=== PATIENT | male | born 1965 | race Caucasian/White ===

== ENCOUNTER 2016-08-29 13:36 | Emergency (ER) | payer MEDICARE, MEDICAID ==
[~2016-08-29] VITALS: Ht 188 cm; Wt 67.9 kg
[~2016-08-29 13:36] MED LIST: ACET-2161 GT; ACET325T51 GT; AMOX1TAB16 PO; BACI30OI6 TOP; BENZ1TAB49 GT; BISM262O28 PO; FERR220E3 GT; FLUT9.9S EA NOSTRIL; GUAI100S13 GT; LAMO100T12 GT; LAMO200T6 GT; LIDO30CR23 TP; LORA5SOL70 GT; MENT71OI TOP; METF500T4 GT; NUT.237L53 PO; OMEP40CA GT; POTA10CA37 GT; SERT-77 GT; TOLN150S TOP; TRAZ150T80 GT; [UNRECOGNIZED DRUG - CODE] GT; [UNRECOGNIZED DRUG - CODE] GT
[2016-08-29 13:39] VITALS: TEMP 98.1; Ht 188 cm; Wt 67.9 kg
--- OUTSIDE RECORDS SUMMARY | 2016-08-29 13:40 | XMS REPORT | Continuity of Care Document ---
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 If you do not see the information that you expected, contact Release of Information in the Health Information Management department at [phone] for further assistance in locating additional records.[facility] Active Allergies and Adverse Reactions Allergen Noted Date Severity Reactions Comments Bactrim 11/03/2015 Low SEE COMMENTS causes kidney dysfunction Ibuprofen 11/03/2015 Low SEE COMMENTS causes kidney dysfunction Pseudoephedrine Hcl 11/03/2015 Medium ITCHING, EDEMA Current Medications Prescription Sig. Disp. Refills Start End Date Status Date acetaminophen (TYLENOL) 500 mg by PEG Tube route Active 500 mg tablet every 6 hours as needed for Pain. aspirin 81 mg chewable 81 mg by PEG Tube route Active tablet daily. Take with food. benztropine (COGENTIN) 1 1 mg by PEG Tube route Active mg tablet twice daily. MENTHOL/ZINC OXIDE Apply to affected area Active (CALMOSEPTINE TP) as Needed. ferrous sulfate 300 mg/5 300 mg by PEG Tube route Active mL oral solution daily. fluticasone (FLONASE) 50 Apply to each nostril as Active mcg/actuation nasal spray directed daily. Shake bottle gently before using. Nut.Tx.Gluc.Intol,Lac-Wang by PEG Tube route at Active e,Soy (GLUCERNA 1.5 KRISTAN) bedtime daily. liqd NUT.TX.GLUC.INTOLER,LAC-F by PEG Tube route daily. Active R,SOY (GLUCERNA SHAKE PO) lamoTRIgine (LAMICTAL) 300 mg by PEG Tube route Active 100 mg tablet daily. loratadine (CLARITIN) 5 5 mg by PEG Tube route Active mg/5 mL syrup daily. metFORMIN (GLUCOPHAGE) 250 mg by PEG Tube route Active 500 mg tablet daily. magnesium hydroxide (MILK 30 mL by PEG Tube route Active OF MAGNESIA) 400 mg/5 mL every 24 hours as needed. oral suspension QUEtiapine (SEROQUEL) 50 Take 75 mg by mouth twice Active mg tablet daily. QUEtiapine (SEROQUEL) 300 Take 300 mg by mouth Active mg tablet twice daily. sertraline (ZOLOFT) 100 Take 200 mg by mouth Active mg tablet daily. traZODone (DESYREL) 100 Take 100 mg by mouth at Active mg tablet bedtime daily. Active Problems Problem Noted Date Dysphagia 11/03/2015 Social History Tobacco Use Types Packs/Day Years Used Date Never Smoker Last Filed Vital Signs Vital Sign Reading Time Taken Blood Pressure 104/62 11/03/2015 9:56 AM CDT Pulse 70 11/03/2015 9:56 AM CDT Temperature - - Respiratory Rate - - Height 1.88 m (6' 2") 11/03/2015 9:56 AM CDT Weight 75.5 kg (166 lb 7.2 oz) 11/03/2015 9:56 AM CDT Body Mass Index 21.36 11/03/2015 9:56 AM CDT Oxygen Saturation - - Plan of Care Health Maintenance Due Date Last Done Comments Physical (Comprehensive) 1973 Exam Pertussis Vaccine 1977 Tetanus Vaccine 1983 Colorectal Cancer 2016 Screening Influenza Vaccine 12/09/2016 Results from Last 3 Months Not on file
--- OUTSIDE RECORDS SUMMARY | 2016-08-29 13:41 | XMS REPORT | Referral Summary ---
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 Name Role Phone Rob Everett Primary Care Physician [phone] Encounter Date(s): 03/17/16 - 03/17/16 [facility], [address] [place] [id number] Discharge Diagnosis: Sideropenic dysphagia Discharge Diagnosis: DM II (diabetes mellitus, type II), controlled Discharge Diagnosis: Feeding by G-tube Discharge Diagnosis: Undifferentiated schizophrenia Discharge Diagnosis: Mixed hyperlipidemia Discharge Diagnosis: Severe recurrent major depression with psychotic features Discharge Diagnosis: GERD with esophagitis Discharge Diagnosis: Cellulitis Discharge Disposition: 01-Home or Self Care Attending Physician: David Bhatt MD Admitting Physician: David Bhatt MD Vital Signs Most recent to 1 oldest [Reference Range]: Blood Pressure 100/60 mmHg [90-140/60-90 mmHg] (03/17/16 1:24 PM) Problem List Condition Effective Dates Status Health Status Informant Allergic Active rhinitis(Confirmed) GERD with Active esophagitis(Confirme d) Mixed Active hyperlipidemia(Confi rmed) Sideropenic Active dysphagia(Confirmed) Recurrent aspiration < 07/06/15 Resolved bronchitis/pneumonia (Confirmed) Severe recurrent Active major depression with psychotic features(Confirmed) Feeding by Active G-tube(Confirmed) DM II (diabetes Active mellitus, type II), controlled(Confirmed ) Undifferentiated Active schizophrenia(Confir med) Allergies, Adverse Reactions, Alerts Substance Reaction Severity Status Bactrim Active ibuprofen Active Sudafed Active Medications acetaminophen 0 Refill(s) Start Date: 06/10/15 Status: Ordered amoxicillin 250 mg/5 mL oral suspension 500 mg 10 mL, G-Tube, TID, X 10 days, # 300 mL, 0 Refill(s), Pharmacy: [facility], 10 mL G-Tube TID,x10 days Start Date: 03/17/16 Stop Date: 03/27/16 Status: Ordered aspirin 81 mg oral tablet 81 mg 1 tabs, Oral, Daily, # 30 tabs, 0 Refill(s) Start Date: 06/10/15 Status: Ordered benztropine 1 mg oral tablet mg tabs, Oral, BID, 0 Refill(s) Start Date: 06/10/15 Status: Ordered docusate 0 Refill(s) Start Date: 06/10/15 Status: Ordered ferrous fumarate 300 mg oral tablet mg tabs, Oral, Daily, 0 Refill(s) Start Date: 06/10/15 Status: Ordered ferrous sulfate 300 mg/5 mL (60 mg elemental iron) oral liquid 300 mg 5 mL, G-Tube, Daily, # 150 mL, 1 Refill(s) Start Date: 12/09/15 Status: Ordered Flonase sprays, Nasal, Daily, 0 Refill(s) Start Date: 06/10/15 Status: Ordered Glucometer (DME) DME Item to check bld sugars fasting and 2hrpp after last meal three days of week. diag - E11.9, See Instructions, # 1 Each, 0 Refill(s), Pharmacy: [facility], to check bld sugars fasting and 2hrpp after last meal three days of we... Start Date: 07/08/15 Status: Ordered Glucometer Lancets (DME) DME Item AccuCheck Soft Click Lancets. SIG: Use one lancet BID every other day. DX: E11.9, See Instructions, # 1 boxes, 6 Refill(s), Pharmacy: [id number], AccuCheck Soft Click Lancets. SIG: Use one lancet BID every other day. DX: E... Start Date: 02/16/16 Status: Ordered Glucometer strips (DME) DME Item PT USES ACCUCHECK SHORTY TO CHECK BLOOD SUGAR 4 TIMES DAILY FOR E11.65, See Instructions, # 100 Each, 1 Refill(s), Pharmacy: [facility] [id number] , PT USES ACCUCHECK SHORTY TO CHECK BLOOD SUGAR 4 TIMES DAILY FOR E11.65, Supply Start Date: 07/27/15 Status: Ordered lamoTRIgine 200 mg oral tablet mg tabs, Oral, BID, 0 Refill(s) Start Date: 06/10/15 Status: Ordered loratadine 0 Refill(s) Start Date: 06/10/15 Status: Ordered Milk of Magnesia Oral, Bedtime (once a day), 0 Refill(s) Start Date: 06/10/15 Status: Ordered mupirocin 2% topical ointment 1 jessie, Topical, BID, Apply 1 gram to affected area aroung g-tube for 5 days., # 22 g, 0 Refill(s), Pharmacy: [facility] Start Date: 03/17/16 Status: Ordered potassium chloride 10 mEq oral tablet, extended release mEq tabs, Oral, BID, 0 Refill(s) Start Date: 06/10/15 Status: Ordered PriLOSEC Oral, Daily, 0 Refill(s) Start Date: 06/10/15 Status: Ordered QUEtiapine 300 mg oral tablet mg tabs, Oral, BID, 0 Refill(s) Start Date: 06/10/15 Status: Ordered Senna Oral, Bedtime (once a day), 0 Refill(s) Start Date: 06/10/15 Status: Ordered sertraline 100 mg oral tablet mg tabs, Oral, Daily, 0 Refill(s) Start Date: 06/10/15 Status: Ordered traZODone 100 mg oral tablet mg tabs, Oral, TID, 0 Refill(s) Start Date: 06/10/15 Status: Ordered Results No data available for this section Immunizations Vaccine Date Refusal Reason influenza virus vaccine, inactivated 12/04/15 Procedures No data available for this section Social History Social History Type Response Smoking Status Never smoker Assessment and Plan Extracted from: Title: Ambulatory Patient Education Author: David Bhatt MD Date: Family Medicine Bipolar Disorder Bipolar disorder is a mental illness. The term bipolar disorder actually is used to describe a group of disorders that all share varying degrees of emotional highs and lows that can interfere with daily functioning, such as work , school, or relationships. Bipolar disorder also can lead to drug abuse, hospitalization, and suicide. The emotional highs of bipolar disorder are periods of elation or irritability and high energy. These highs can range from a mild form (hypomania) to a severe form (rosemarie). People experiencing episodes of hypomania may appear energetic, excitable, and highly productive. People experiencing rosemarie may behave impulsively or erratically. They often make poor decisions. They may have difficulty sleeping. The most severe episodes of rosemarie can involve having very distorted beliefs or perceptions about the world and seeing or hearing things that are not real (psychotic delusions and hallucinations). The emotional lows of bipolar disorder (depression) also can range from mild to severe. Severe episodes of bipolar depression can involve psychotic delusions and hallucinations. Sometimes people with bipolar disorder experience a state of mixed mood. Symptoms of hypomania or rosemarie and depression are both present during this mixed -mood episode. SIGNS AND SYMPTOMS There are signs and symptoms of the episodes of hypomania and rosemarie as well as the episodes of depression. The signs and symptoms of hypomania and rosemarie are similar but vary in severity. They include: Inflated self-esteem or feeling of increased self-confidence. Decreased need for sleep. Unusual talkativeness (rapid or pressured speech) or the feeling of a need to keep talking. Sensation of racing thoughts or constant talking, with quick shifts between topics that may or may not be related (flight of ideas). Decreased ability to focus or concentrate. Increased purposeful activity, such as work, studies, or social activity , or nonproductive activity, such as pacing, squirming and fidgeting, or finger and toe tapping. Impulsive behavior and use of poor judgment, resulting in high-risk activities, such as having unprotected sex or spending excessive amounts of money. Signs and symptoms of depression include the following: Feelings of sadness, hopelessness, or helplessness. Frequent or uncontrollable episodes of crying. Lack of feeling anything or caring about anything. Difficulty sleeping or sleeping too much. Inability to enjoy the things you used to enjoy. Desire to be alone all the time. Feelings of guilt or worthlessness. Lack of energy or motivation. Difficulty concentrating, remembering, or making decisions. Change in appetite or weight beyond normal fluctuations. Thoughts of or the desire to harm yourself. DIAGNOSIS Bipolar disorder is diagnosed through an assessment by your caregiver. Your caregiver will ask questions about your emotional episodes. There are two main types of bipolar disorder. People with type I bipolar disorder have manic episodes with or without depressive episodes. People with type II bipolar disorder have hypomanic episodes and major depressive episodes, which are more serious than mild depression. The type of bipolar disorder you have can make an important difference in how your illness is monitored and treated. Your caregiver may ask questions about your medical history and use of alcohol or drugs, including prescription medication. Certain medical conditions and substances also can cause emotional highs and lows that resemble bipolar disorder (secondary bipolar disorder). TREATMENT Bipolar disorder is a long-term illness. It is best controlled with continuous treatment rather than treatment only when symptoms occur. The following treatments can be prescribed for bipolar disorders: MedicationMedication can be prescribed by a doctor that is an expert in treating mental disorders (psychiatrists). Medications called mood stabilizers are usually prescribed to help control the illness. Other medications are sometimes added if symptoms of rosemarie, depression, or psychotic delusions and hallucinations occur despite the use of a mood stabilizer. Talk therapySome forms of talk therapy are helpful in providing support, education, and guidance. A combination of medication and talk therapy is best for managing the disorder over time. A procedure in which electricity is applied to your brain through your scalp (electroconvulsive therapy) is used in cases of severe rosemarie when medication and talk therapy do not work or work too slowly. This information is not intended to replace advice given to you by your health care provider. Make sure you discuss any questions you have with your health care provider. Document Released: 07/03/2001 Document Revised: 04/17/2015 Document Reviewed: [employer] Patient Education 2016 [employer] No follow up information was provided. Extracted from: Title: Office Visit Note Author: David Bhatt MD Date: 03/17/16 Assessment/Plan Cellulitis Amox elixir 250/5two tspsper PEG tube tid for ten days. Bactroban ointment bid for five days. Routine wound care discussed. Dressing applied. Wound culture pending. F/U with Dr. CHRISTENSEN. The patient has family members present who are agreeable with today's plan and have no additional concerns or requests. Home Health aid here and agreeable. To ER if worse. DM II (diabetes mellitus, type II), controlled The patient was notified for the need for regular quarterly f/u of their diabetes. Further any pertinent medication, supplies, etc were refilled. Additionally, they are to have annual eye exams, foot exams, and regular care. Lab stable. Feeding by G-tube See above. IMPRESSION: 1. There is some mild prominence of pulmonary interstitial markings with a suggestion of mild hyperinflation and air trapping. There are no focal alveolar infiltrates. There is no effusion. There is no evidence of failure. [1] GERD with esophagitis This issue was reviewed, appears stable, and current therapy continued except as mentioned. Appropriate lab was reviewed from the most recent appropriate entry and lab was ordered if needed in the cpoe/nursing orders, and follow up recommended generally in 90 days and no later then six months. Mixed hyperlipidemia This issue was reviewed, appears stable, and current therapy continued except as mentioned. Appropriate lab was reviewed from the most recent appropriate entry and lab was ordered if needed in the cpoe/nursing orders, and follow up recommended generally in 90 days and no later then six months. Severe recurrent major depression with psychotic features This issue was reviewed, appears stable, and current therapy continued except as mentioned. Appropriate lab was reviewed from the most recent appropriate entry and lab was ordered if needed in the cpoe/nursing orders, and follow up recommended generally in 90 days and no later then six months. Mood stable at this time. Sideropenic dysphagia See above. Has severe esophageal issues and has a PEGtube. Undifferentiated schizophrenia This issue was reviewed, appears stable, and current therapy continued except as mentioned. Appropriate lab was reviewed from the most recent appropriate entry and lab was ordered if needed in the cpoe /nursing orders, and follow up recommended generally in 90 days and no later then six months. Mood stable.
--- OUTSIDE RECORDS SUMMARY | 2016-08-29 13:41 | XMS REPORT | Referral Summary ---
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 Name Role Phone Rob Everett Primary Care Physician [phone] Encounter VC Date(s): 03/28/16 - 03/28/16 [facility], [address] [place] [id number] Discharge Diagnosis: Feeding by G-tube Discharge Diagnosis: Aspiration pneumonia Discharge Diagnosis: Pneumonia, community acquired Discharge Disposition: 01-Home or Self Care Attending Physician: Rob Everett DO Admitting Physician: Rob Everett DO Vital Signs Most recent to 1 oldest [Reference Range]: Temperature Tympanic 36.2 degC [36.6-38.1 degC] *LOW* (03/28/16 1:50 PM) Peripheral Pulse 78 bpm Rate [60-100 bpm] (03/28/16 1:50 PM) Blood Pressure 103/60 mmHg [90-140/60-90 mmHg] (03/28/16 1:50 PM) Problem List Condition Effective Dates Status [...] Active ibuprofen Active Sudafed Active Medications acetaminophen 500-1000 mg, G-Tube, q12hr, as needed for pain, 0 Refill(s) Start Date: 06/10/15 Status: Ordered aspirin 81 mg oral tablet 81 mg 1 tabs, Oral, Daily, # 30 tabs, 0 Refill(s) Start Date: 06/10/15 Status: Ordered Augmentin 875 mg-125 mg oral tablet 1 tabs, Oral, q12hr, X 7 days, 0 Refill(s) Start Date: 03/25/16 Stop Date: 03/31/16 Status: Ordered benztropine 1 mg oral tablet 1 mg 1 tabs, G-Tube, BID, 0 Refill(s) Start Date: 06/10/15 Status: Ordered ferrous sulfate 300 mg/5 mL (60 mg elemental iron) oral liquid 300 mg 5 mL, G-Tube, Daily, # 150 mL, 1 Refill(s) Start Date: 12/09/15 Status: Ordered Flonase 2 sprays, Nasal, Daily, 0 Refill(s) Start Date: 06/10/15 Status: Ordered Glucometer (DME) DME Item to check bld sugars fasting and 2hrpp after last meal three days of week. diag - E11.9, See Instructions, # 1 Each, 0 Refill(s), Pharmacy: [facility], to check bld sugars fasting and 2hrpp after last meal three days of we... Start Date: 07/08/15 Status: Ordered Glucometer Lancets (DME) DME Item AccuCheck Soft Click Lancets. SIG: Use one lancet BID every other day. DX: E11.9, See Instructions, # 1 boxes, 6 Refill(s), Pharmacy: [facility], AccuCheck Soft Click Lancets. SIG: Use one lancet BID every other day. DX: E... Start Date: 02/16/16 Status: Ordered Glucometer strips (DME) DME Item PT USES ACCUCHECK SHORTY TO CHECK BLOOD SUGAR 4 TIMES DAILY FOR E11.65, See Instructions, # 100 Each, 1 Refill(s), Pharmacy: [facility] [id number] , PT USES ACCUCHECK SHORTY TO CHECK BLOOD SUGAR 4 TIMES DAILY FOR E11.65, Supply Start Date: 07/27/15 Status: Ordered lamoTRIgine 200 mg oral tablet See Instructions, 100mg AM 200mg PM, 0 Refill(s) Start Date: 06/10/15 Status: Ordered loratadine 10 mg, G-Tube, Daily, 0 Refill(s) Start Date: 06/10/15 Status: Ordered metFORMIN 500 mg oral tablet 250 mg 0.5 tabs, Oral, BID, 0 Refill(s) Start Date: 03/25/16 Status: Ordered mupirocin 2% topical ointment 1 jessie, Topical, BID, Apply 1 gram to affected area aroung g-tube for 5 days., # 22 g, 0 Refill(s), Pharmacy: [facility] Start Date: 03/17/16 Status: Ordered potassium chloride 10 mEq oral tablet, extended release 10 mEq 1 tabs, Oral, BID, 0 Refill(s) Start Date: 06/10/15 Status: Ordered PriLOSEC 40 mg, Oral, Daily, 0 Refill(s) Start Date: 06/10/15 Status: Ordered QUEtiapine 300 mg oral tablet 300 mg 1 tabs, Oral, BID, 0 Refill(s) Start Date: 06/10/15 Status: Ordered sertraline 100 mg oral tablet 200 mg 2 tabs, Oral, Daily, 0 Refill(s) Start Date: 06/10/15 Status: Ordered traZODone 100 mg oral tablet 150 mg 1.5 tabs, Oral, Bedtime (once a day), 0 Refill(s) Start Date: 06/10/15 Status: Ordered Results No data available for this section Immunizations Given and Recorded Vaccine Date Status Refusal Reason influenza virus vaccine, inactivated 12/04/15 Given Procedures No data available for this section Social History Social History Type Response Smoking Status Never smoker Assessment and Plan Extracted from: Title: Office Visit Note Author: Rob Everett DO Date: 03/28/16 Assessment/Plan 1.Feeding by G-tube 1. Feeding tube in good placement. 2. Continue with feeding as previous. 3. Follow up for any new concerns. Ordered: Trans Care Mgmt 14 Day Disch 61450 2.Pneumonia, community acquired 1. Hospital records from [facility] for the dates of 03/22/16 to 03/24/16 reviewed in detail. No farther work up at this time. 2. Continue with current care. 3. Follow up for any new concerns. Ordered: Trans Care Mgmt 14 Day Disch [id number] 3.Aspiration pneumonia 1. As above. 2. Avoid oral intake, all nutrition and hydration should be by feeding tube to avoid aspiration. Ordered: Trans Care Mgmt 14 Day Disch [id number]
--- OUTSIDE RECORDS SUMMARY | 2016-08-29 13:41 | XMS REPORT | Continuity of Care Document ---
Author Author [facility] Organization [facility] Address Unknown Phone Unavailable Allergies Active Description Code Type Severity Reaction Onset Reported/Identified Relationship to Patient Clinical Status Yes BACTRIM [id number] Drug Allergy N/A N/A Yes IBUPROFEN 5640 Drug Allergy N/A N/A Yes PSEUDOEPHEDRINE HCL 76184 Drug Allergy N/A N/A Yes No Known Contrast Allergies No Known Contrast Allergies Drug Allergy Unknown N/A 11/14/2004 Yes No Known Food Allergies No Known Food Allergies Drug Allergy Unknown N/A 11/14/2004 Yes NO KNOWN LATEX ALLERGY/SENSITI NO KNOWN LATEX ALLERGY/SENSITI Drug Allergy Unknown N/A 2004 Yes SUDAFED SUDAFED Drug Allergy Unknown HIVES 11/14/2004 Yes pseudoephedrine pseudoephedrine Drug Allergy Unknown N/A 11/15/2004 Yes pseudoephedrine pseudoephedrine Drug Allergy Unknown UNKNOWN 05/15/2015 Yes ibuprofen ibuprofen Drug Allergy Unknown UNKNOWN 05/16/2015 Yes sulfamethoxazole sulfamethoxazole Drug Allergy Unknown RENAL FAILURE 05/16/2015 Yes trimethoprim trimethoprim Drug Allergy Unknown RENAL FAILURE 05/16/2015 Yes Bactrim NKMA N/A N/A 06/10/2015 Yes ibuprofen NKMA N/A N/A 06/10/2015 Yes Sudafed NKMA N/A N/A 06/10/2015 Medications Problems Date Dx Coded Attending Type Code Diagnosis Diagnosed By 05/16/2015 Thomas EDWARD, [employer] [facility] D64.9 ANEMIA, UNSPECIFIED 05/16/2015 Thomas EDWARD, [employer] E11.9 TYPE 2 DIABETES MELLITUS WITHOUT COMPLICATIONS 05/16/2015 Thomas EDWARD, [employer] F20.9 SCHIZOPHRENIA, UNSPECIFIED 05/16/2015 Grupo Guzman MD F31.9 BIPOLAR DISORDER, UNSPECIFIED 05/16/2015 Grupo Guzman MD J69.0 PNEUMONITIS DUE TO INHALATION OF FOOD AND VOMIT 05/16/2015 Grupo Guzman MD R13.10 DYSPHAGIA, UNSPECIFIED 05/16/2015 Thomas EDWARD, [employer] R63.4 ABNORMAL WEIGHT LOSS 05/16/2015 Thomas EDWARD, [employer] R91.8 OTHER NONSPECIFIC ABNORMAL FINDING OF LUNG FIELD 05/16/2015 Thomas EDWARD, [employer] Z88.0 ALLERGY STATUS TO PENICILLIN 05/16/2015 Thomas EDWARD, [employer] Z88.5 ALLERGY STATUS TO NARCOTIC AGENT STATUS Procedures Code Description Performed By Performed On [id number] INSERTION OF FEEDING DEVICE INTO STOMACH, PERC FRANCISCO Westhoff DO, Jolynn C 05/16/2015 [id number] INSPECTION OF UPPER INTESTINAL TRACT, ENDO Westhoff DO, Jolynn C 05/16/2015 [id number] INSPECTION OF LOWER INTESTINAL TRACT, ENDO Westhoff DO, Jolynn C 05/16/2015 Results Test Result Range CBC W/DIFF - 05/15/15 19:27 BASOPHIL # 0.0 k/cumm 0.0-0.2 BASOPHIL % 1 % 0-1 EOSINOPHIL # 0.1 k/cumm 0.1-0.5 EOSINOPHIL % 3 % 2-4 GRANULOCYTE # 2.5 k/cumm 2.0-9.0 GRANULOCYTE % 57 % 50-75 LYMPHOCYTE # 1.3 k/cumm 1.0-4.0 LYMPHOCYTE % 29 % 20-30 MEAN CELL HGB 28.8 pg 27.0-33.0 MEAN CELL HGB CONCENTRATION 33.1 g/dL 32.0-37.0 MEAN CELL VOLUME 86.9 fl 80.0-100.0 MONOCYTE # 0.5 k/cumm 0.1-1.0 MONOCYTE % 11 % 4-6 RED BLOOD CELL 3.96 m/cumm 4.00-6.00 RED CELL DISTRIBUTION WIDTH 13.8 % 11.0- 15.6 WHITE BLOOD CELL 4.4 k/cumm 5.0-10.0 HEMOGLOBIN 11.4 gm/dL 14.0-18.0 HEMATOCRIT 34.4 % 40.0-54.0 PLATELET COUNT 275 k/cumm 150-400 SED RATE - 05/15/15 19:27 SED RATE 46 mm/hr 0-7 CHEM/HEM PROFILE-BEDSIDE - 05/15/15 19:28 POTASSIUM 4.0 mmol/L 3.5-5.3 METHOD Bedside ANION GAP 19 mmol/L 10-20 METHOD Bedside GLUCOSE 98 mg/dL 70-99 BLOOD UREA NITROGEN 14 mg/dL 7-20 CREATININE 0.8 mg/dL 0.7-1.3 HEMOGLOBIN 10.9 gm/dL 14.0-18.0 HEMATOCRIT 32.0 % 40.0-54.0 SODIUM 142 mmol/L 135-148 CHLORIDE 102 mmol/L 98-110 CARBON DIOXIDE 25 mmol/L 21-32 CALCIUM IONIZED 4.9 mg/dL 4.5-5.3 HEPATIC FUNCTION PANEL - 05/15/15 19:29 BILI UNCONJUGATED 0.2 mg/dL 0.0-0.7 AST/SGOT 10 Units/L 10-37 ALT/SGPT 17 Units/L < 66 TOTAL PROTEIN 7.3 gm/dL 6.4-8.2 ALBUMIN 3.6 gm/dL 3.4-5.0 BILI TOTAL 0.3 mg/dL 0.0-1.0 ALKALINE PHOSPHATASE TOTAL 128 IU/L 45- 117 BILI CONJUGATED 0.1 mg/dL 0.0-0.3 C REACTIVE PROTEIN - 05/15/15 19:29 C REACTIVE PROTEIN 33.3 mg/L < 8.0 GLUCOSE (POC) - 05/15/15 22:36 GLUCOSE (POC) 81 mg/dL 70-99 GLUCOSE (POC) - 05/15/15 23:13 GLUCOSE (POC) 109 mg/dL 70-99 URINALYSIS, ROUTINE - 05/15/15 23:35 UA LEUKOCYTE ESTERASE DIPSTICK NEGATIVE NEGATIVE UA NITRITE DIPSTICK NEGATIVE NEGATIVE UA PROTEIN DIPSTICK NEGATIVE NEGATIVE UA GLUCOSE DIPSTICK NEGATIVE NEGATIVE UA KETONE DIPSTICK 1+ NEGATIVE UA UROBILINOGEN DIPSTICK NORMAL NORMAL UA BILIRUBIN DIPSTICK NEGATIVE NEGATIVE UA BLOOD DIPSTICK NEGATIVE NEGATIVE UA SPECIFIC GRAVITY 1.021 1.015-1.025 UR PH 8.0 5.0-7.0 URINALYSIS, ROUTINE - 05/15/15 23:38 UA LEUKOCYTE ESTERASE DIPSTICK NEGATIVE NEGATIVE UA NITRITE DIPSTICK NEGATIVE NEGATIVE UA PROTEIN DIPSTICK NEGATIVE NEGATIVE UA GLUCOSE DIPSTICK NEGATIVE NEGATIVE UA KETONE DIPSTICK 1+ NEGATIVE UA UROBILINOGEN DIPSTICK NORMAL NORMAL UA BILIRUBIN DIPSTICK NEGATIVE NEGATIVE UA BLOOD DIPSTICK NEGATIVE NEGATIVE UA SPECIFIC GRAVITY 1.025 1.015-1.025 UR PH 7.5 5.0-7.0 GLUCOSE (POC) - 05/15/15 23:44 GLUCOSE (POC) 97 mg/dL 70-99 GLUCOSE (POC) - 05/16/15 00:51 GLUCOSE (POC) 90 mg/dL 70-99 GLUCOSE (POC) - 05/16/15 10:13 GLUCOSE (POC) 96 mg/dL 70-99 IMMUNOGLOBULIN A - 05/16/15 11:57 IMMUNOGLOBULIN A 78 mg/dL 70-400 GLIADIN ANTIBODIES IGA - 05/16/15 11:57 GLIADIN ANTIBODIES IGA 2 units 0-19 TRANSGLUTAMINASE AB IGA - 05/16/15 11:57 TRANSGLUTAMINASE AB IGA <2 U/mL 0-3 GLUCOSE (POC) - 05/16/15 15:32 GLUCOSE (POC) 130 mg/dL 70-99 GLUCOSE (POC) - 05/16/15 21:27 GLUCOSE (POC) 124 mg/dL 70-99 GLUCOSE (POC) - 05/17/15 00:16 GLUCOSE (POC) 125 mg/dL 70-99 GLUCOSE (POC) - 05/17/15 04:20 GLUCOSE (POC) 117 mg/dL 70-99 CBC W/MANUAL DIFF - 05/17/15 07:56 MEAN CELL HGB 28.4 pg 27.0-33.0 MEAN CELL HGB CONCENTRATION 32.6 g/dL 32.0-37.0 MEAN CELL VOLUME 87.2 fl 80.0-100.0 RED BLOOD CELL 4.15 m/cumm 4.00-6.00 RED CELL DISTRIBUTION WIDTH 13.7 % 11.0- 15.6 WHITE BLOOD CELL 2.8 k/cumm 5.0-10.0 HEMOGLOBIN 11.8 gm/dL 14.0-18.0 HEMATOCRIT 36.2 % 40.0-54.0 PLATELET COUNT 236 k/cumm 150-400 MANUAL DIFF(O) - 05/17/15 07:56 BASOPHIL # 0.0 k/cumm 0.0-0.2 BASOPHIL % 1 % 0-1 BAND % 3 % 0-10 EOSINOPHIL # 0.1 k/cumm 0.1-0.5 EOSINOPHIL % 3 % 2-4 GRANULOCYTE # 1.6 k/cumm 2.0-9.0 LYMPHOCYTE # 0.8 k/cumm 1.0-4.0 LYMPHOCYTE % 30 % 20-30 DIFFERENTIAL MANUAL MONOCYTE # 0.3 k/cumm 0.1-1.0 MONOCYTE % 10 % 4-6 RBC MORPH NOTED SEGMENTED NEUTROPHIL % 53 % 50-70 REACTIVE LYMPH NOTED METABOLIC PANEL, COMPREHN - 05/17/15 07:56 POTASSIUM 4.0 mmol/L 3.5-5.3 EST GFR (MDRD) > 60 mL/min > 59 ANION GAP 3 mmol/L 5-15 EST CrCl (CG) > 60 mL/min > 59 GLUCOSE 134 mg/dL 70-99 CALCIUM 8.4 mg/dL 8.5-10.1 BLOOD UREA NITROGEN 12 mg/dL 7-20 CREATININE 0.8 mg/dL 0.7-1.3 SODIUM 141 mmol/L 135-148 CHLORIDE 106 mmol/L 98-110 AST/SGOT 9 Units/L 10-37 ALT/SGPT 17 Units/L < 66 CARBON DIOXIDE 32 mmol/L 21-32 TOTAL PROTEIN 6.7 gm/dL 6.4-8.2 ALBUMIN 3.2 gm/dL 3.4-5.0 BILI TOTAL 0.3 mg/dL 0.0-1.0 ALKALINE PHOSPHATASE TOTAL 121 IU/L 45- 117 MAGNESIUM - 05/17/15 07:56 MAGNESIUM 1.8 mg/dL 1.8-2.4 GLUCOSE (POC) - 05/17/15 11:11 GLUCOSE (POC) 116 mg/dL 70-99 GLUCOSE (POC) - 05/17/15 15:46 GLUCOSE (POC) 103 mg/dL 70-99 GLUCOSE (POC) - 05/17/15 20:24 GLUCOSE (POC) 90 mg/dL 70-99 GLUCOSE (POC) - 05/18/15 00:26 GLUCOSE (POC) 92 mg/dL 70-99 GLUCOSE (POC) - 05/18/15 04:46 GLUCOSE (POC) 92 mg/dL 70-99 RENAL FUNCTION PANEL - 05/18/15 05:45 POTASSIUM 3.9 mmol/L 3.5-5.3 EST GFR (MDRD) > 60 mL/min > 59 ANION GAP 4 mmol/L 5-15 EST CrCl (CG) > 60 mL/min > 59 GLUCOSE 101 mg/dL 70-99 CALCIUM 8.3 mg/dL 8.5-10.1 BLOOD UREA NITROGEN 10 mg/dL 7-20 CREATININE 0.8 mg/dL 0.7-1.3 SODIUM 140 mmol/L 135-148 CHLORIDE 105 mmol/L 98-110 CARBON DIOXIDE 31 mmol/L 21-32 ALBUMIN 3.2 gm/dL 3.4-5.0 PHOSPHORUS 2.9 mg/dL 2.5-4.9 MAGNESIUM - 05/18/15 05:45 MAGNESIUM 1.7 mg/dL 1.8-2.4 CBC W/MANUAL DIFF - 05/18/15 05:45 MEAN CELL HGB 28.4 pg 27.0-33.0 MEAN CELL HGB CONCENTRATION 32.6 g/dL 32.0-37.0 MEAN CELL VOLUME 87.1 fl 80.0-100.0 RED BLOOD CELL 4.02 m/cumm 4.00-6.00 RED CELL DISTRIBUTION WIDTH 13.5 % 11.0- 15.6 WHITE BLOOD CELL 3.8 k/cumm 5.0-10.0 HEMOGLOBIN 11.4 gm/dL 14.0-18.0 HEMATOCRIT 35.0 % 40.0-54.0 PLATELET COUNT 232 k/cumm 150-400 MANUAL DIFF(O) - 05/18/15 05:45 EOSINOPHIL # 0.2 k/cumm 0.1-0.5 EOSINOPHIL % 4 % 2-4 GRANULOCYTE # 2.1 k/cumm 2.0-9.0 LYMPHOCYTE # 1.3 k/cumm 1.0-4.0 LYMPHOCYTE % 34 % 20-30 DIFFERENTIAL MANUAL MONOCYTE # 0.2 k/cumm 0.1-1.0 MONOCYTE % 6 % 4-6 RBC MORPH NOTED SEGMENTED NEUTROPHIL % 56 % 50-70 GLUCOSE (POC) - 05/18/15 10:37 GLUCOSE (POC) 106 mg/dL 70-99 GLUCOSE (POC) - 05/18/15 11:39 GLUCOSE (POC) 93 mg/dL 70-99 GLUCOSE (POC) - 05/18/15 16:40 GLUCOSE (POC) 152 mg/dL 70-99 GLUCOSE (POC) - 05/18/15 20:56 GLUCOSE (POC) 124 mg/dL 70-99 GLUCOSE (POC) - 05/19/15 05:24 GLUCOSE (POC) 126 mg/dL 70-99 GLUCOSE (POC) - 05/19/15 09:38 GLUCOSE (POC) 97 mg/dL 70-99 GLUCOSE (POC) - 05/19/15 13:54 GLUCOSE (POC) 97 mg/dL 70-99 GLUCOSE (POC) - 05/19/15 17:07 GLUCOSE (POC) 101 mg/dL 70-99 GLUCOSE (POC) - 05/19/15 21:02 GLUCOSE (POC) 137 mg/dL 70-99 GLUCOSE (POC) - 05/20/15 05:21 GLUCOSE (POC) 107 mg/dL 70-99 GLUCOSE (POC) - 05/20/15 09:45 GLUCOSE (POC) 132 mg/dL 70-99 GLUCOSE (POC) - 05/20/15 12:45 GLUCOSE (POC) 93 mg/dL 70-99 GLUCOSE (POC) - 05/20/15 16:19 GLUCOSE (POC) 69 mg/dL 70-99 GLUCOSE (POC) - 05/20/15 16:51 GLUCOSE (POC) 135 mg/dL 70-99 GLUCOSE (POC) - 05/20/15 20:49 GLUCOSE (POC) 78 mg/dL 70-99 GLUCOSE (POC) - 05/20/15 21:59 GLUCOSE (POC) 88 mg/dL 70-99 GLUCOSE (POC) - 05/21/15 00:01 GLUCOSE (POC) 86 mg/dL 70-99 GLUCOSE (POC) - 05/21/15 04:11 GLUCOSE (POC) 97 mg/dL 70-99 CBC W/DIFF - 05/21/15 05:33 EOSINOPHIL # 0.1 k/cumm 0.1-0.5 EOSINOPHIL % 2 % 2-4 GRANULOCYTE # 3.4 k/cumm 2.0-9.0 GRANULOCYTE % 70 % 50-75 LYMPHOCYTE # 1.0 k/cumm 1.0-4.0 LYMPHOCYTE % 20 % 20-30 MEAN CELL HGB 28.6 pg 27.0-33.0 MEAN CELL HGB CONCENTRATION 32.8 g/dL 32.0-37.0 MEAN CELL VOLUME 87.4 fl 80.0-100.0 MONOCYTE # 0.3 k/cumm 0.1-1.0 MONOCYTE % 7 % 4-6 RED BLOOD CELL 3.98 m/cumm 4.00-6.00 RED CELL DISTRIBUTION WIDTH 13.5 % 11.0- 15.6 WHITE BLOOD CELL 4.8 k/cumm 5.0-10.0 HEMOGLOBIN 11.4 gm/dL 14.0-18.0 HEMATOCRIT 34.8 % 40.0-54.0 PLATELET COUNT 202 k/cumm 150-400 RENAL FUNCTION PANEL - 05/21/15 05:33 POTASSIUM 4.2 mmol/L 3.5-5.3 EST GFR (MDRD) > 60 mL/min > 59 ANION GAP 7 mmol/L 5-15 EST CrCl (CG) > 60 mL/min > 59 GLUCOSE 88 mg/dL 70-99 CALCIUM 8.9 mg/dL 8.5-10.1 BLOOD UREA NITROGEN 11 mg/dL 7-20 CREATININE 0.8 mg/dL 0.7-1.3 SODIUM 141 mmol/L 135-148 CHLORIDE 105 mmol/L 98-110 CARBON DIOXIDE 29 mmol/L 21-32 ALBUMIN 3.4 gm/dL 3.4-5.0 PHOSPHORUS 3.3 mg/dL 2.5-4.9 T3 FREE - 05/21/15 09:43 T3 FREE 1.8 pg/mL 2.3-4.2 T4 FREE - 05/21/15 09:43 T4 FREE 0.7 ng/dL 0.8-1.8 THYROID STIM HORMONE (TSH) - 05/21/15 09:43 THYROID STIM HORMONE (TSH) 2.86 uIU/mL 0.34-4.82 GLUCOSE (POC) - 05/21/15 10:55 GLUCOSE (POC) 84 mg/dL 70-99 GLUCOSE (POC) - 05/21/15 13:21 GLUCOSE (POC) 79 mg/dL 70-99 GLUCOSE (POC) - 05/21/15 16:40 GLUCOSE (POC) 88 mg/dL 70-99 GLUCOSE (POC) - 05/21/15 22:09 GLUCOSE (POC) 107 mg/dL 70-99 GLUCOSE (POC) - 05/22/15 01:28 GLUCOSE (POC) 114 mg/dL 70-99 CBC W/DIFF - 05/22/15 05:04 EOSINOPHIL # 0.1 k/cumm 0.1-0.5 EOSINOPHIL % 2 % 2-4 GRANULOCYTE # 3.3 k/cumm 2.0-9.0 GRANULOCYTE % 70 % 50-75 LYMPHOCYTE # 0.8 k/cumm 1.0-4.0 LYMPHOCYTE % 17 % 20-30 MEAN CELL HGB 28.5 pg 27.0-33.0 MEAN CELL HGB CONCENTRATION 33.0 g/dL 32.0-37.0 MEAN CELL VOLUME 86.4 fl 80.0-100.0 MONOCYTE # 0.5 k/cumm 0.1-1.0 MONOCYTE % 11 % 4-6 RED BLOOD CELL 4.18 m/cumm 4.00-6.00 RED CELL DISTRIBUTION WIDTH 13.5 % 11.0- 15.6 WHITE BLOOD CELL 4.8 k/cumm 5.0-10.0 HEMOGLOBIN 11.9 gm/dL 14.0-18.0 HEMATOCRIT 36.1 % 40.0-54.0 PLATELET COUNT 201 k/cumm 150-400 METABOLIC PANEL, COMPREHN - 05/22/15 05:04 POTASSIUM 4.2 mmol/L 3.5-5.3 EST GFR (MDRD) > 60 mL/min > 59 ANION GAP 4 mmol/L 5-15 EST CrCl (CG) > 60 mL/min > 59 GLUCOSE 142 mg/dL 70-99 CALCIUM 8.8 mg/dL 8.5-10.1 BLOOD UREA NITROGEN 15 mg/dL 7-20 CREATININE 0.9 mg/dL 0.7-1.3 SODIUM 137 mmol/L 135-148 CHLORIDE 101 mmol/L 98-110 AST/SGOT 11 Units/L 10-37 ALT/SGPT 15 Units/L < 66 CARBON DIOXIDE 32 mmol/L 21-32 TOTAL PROTEIN 7.1 gm/dL 6.4-8.2 ALBUMIN 3.5 gm/dL 3.4-5.0 BILI TOTAL 0.5 mg/dL 0.0-1.0 ALKALINE PHOSPHATASE TOTAL 138 IU/L 45- 117 GLUCOSE (POC) - 05/22/15 05:04 GLUCOSE (POC) 140 mg/dL 70-99 GLUCOSE (POC) - 05/22/15 10:44 GLUCOSE (POC) 159 mg/dL 70-99 GLUCOSE (POC) - 05/22/15 12:33 GLUCOSE (POC) 136 mg/dL 70-99 GLUCOSE (POC) - 05/22/15 18:20 GLUCOSE (POC) 97 mg/dL 70-99 GLUCOSE (POC) - 05/23/15 00:22 GLUCOSE (POC) 115 mg/dL 70-99 GLUCOSE (POC) - 05/23/15 06:34 GLUCOSE (POC) 154 mg/dL 70-99 GLUCOSE (POC) - 05/23/15 11:33 GLUCOSE (POC) 129 mg/dL 70-99 GLUCOSE (POC) - 05/23/15 17:48 GLUCOSE (POC) 122 mg/dL 70-99 GLUCOSE (POC) - 05/23/15 23:45 GLUCOSE (POC) 123 mg/dL 70-99 GLUCOSE (POC) - 05/24/15 05:17 GLUCOSE (POC) 151 mg/dL 70-99 GLUCOSE (POC) - 05/24/15 11:55 GLUCOSE (POC) 106 mg/dL 70-99 GLUCOSE (POC) - 05/24/15 18:05 GLUCOSE (POC) 102 mg/dL 70-99 GLUCOSE (POC) - 05/24/15 23:47 GLUCOSE (POC) 119 mg/dL 70-99 GLUCOSE (POC) - 05/25/15 05:12 GLUCOSE (POC) 133 mg/dL 70-99 GLUCOSE (POC) - 05/25/15 11:10 GLUCOSE (POC) 115 mg/dL 70-99 GLUCOSE (POC) - 06/04/15 11:58 GLUCOSE (POC) 111 mg/dL 70-99 GRAM STAIN - 06/04/15 14:13 Microbiology AFB SMEAR - 06/04/15 14:13 Microbiology FUNGUS SMEAR - 06/04/15 14:13 Microbiology FLUID CYTOLOGY - 06/04/15 14:17 FLUID CYTOLOGY SPECIMEN RECEIVED FLUID CELL CT/DIFF - 06/04/15 14:17 FLUID APPEARANCE-UNCENTRIFUGED CLOUDY NOT DEFINED FLUID COLOR COLORLESS NOT DEFINED COMMENT FLUID LYMPH 15 % NOT DEFINED FLUID MONO 85 % NOT DEFINED FLUID RBC TEST NOT PERFORMED #/cumm NOT DEFINED FLUID TUBE # CUP FLUID VOLUME 25.0 mL FLUID WBC 74 #/cumm NOT DEFINED GLUCOSE (POC) - 06/04/15 15:29 GLUCOSE (POC) 113 mg/dL 70-99 CBC With Platelet and Differential - 05/19/16 12:41 Absolute Basophils 0.02 10*3/uL 0.00- 0.30 Absolute Eosinophils 0.02 10*3/uL 0.00- 0.60 Absolute Lymphocytes 0.92 10*3/uL 1.00- 4.00 Absolute Monocytes 0.69 10*3/uL 0.20- 0.80 Absolute Neutrophils 8.38 10*3/uL 2.50- 7.00 Basophils 0 % 0-2 Eosinophils 0 % 0-6 HCT 38.4 % 40.0-54.0 HGB 13.0 g/dL 12.0-16.0 Lymphocytes 9 % 20-40 MCH 29.7 pg 26.0-34.0 MCHC 33.9 g/dL 32.0-36.0 MCV 87.7 fL 80.0-96.0 Monocytes 7 % 4-8 MPV 10.1 fL 8.8-14.8 Neutrophils 84 % 50-70 Platelet Count 230 K/uL 150-400 RBC 4.38 10*6/uL 3.70-5.20 RDW 14.5 % 0.0-14.5 WBC 10.0 K/uL 5.0-10.0 Comprehensive Metabolic Panel (CMP) - 05/19/16 12:41 Albumin 4.3 g/dL 3.5-5.0 Alkaline Phosphatase 193 U/L 40-150 ALT (SGPT) 35 U/L 0-55 Anion Gap 10 NA 3-20 AST (SGOT) 35 U/L 5-34 Bilirubin Total 0.4 mg/dL 0.2-1.2 BUN 35 mg/dL 8-26 Calcium 9.7 mg/dL 8.4-10.2 Chloride 104 mEq/L 99-111 CO2 28 mEq/L 23-31 Creatinine 0.95 mg/dL 0.72-1.25 Globulin 3.0 g/dL 1.8-4.0 Glucose 144 mg/dL 70-99 Potassium 4.7 mEq/L 3.5-5.2 Protein 7.3 g/dL 6.1-7.7 Sodium 142 mEq/L 135-144 eGFR - 05/19/16 12:41 eGFR >60 mL/min >60 Encounters ACCT No. Visit Date/Time Discharge Status Pt. Type Provider Facility Loc./Unit Complaint [id number] 08/08/2015 10:00:00 2015 10:00:00 CAN Preadkrystin Mckinney MD, [facility] W.HBO [id number] 06/04/2015 11:06:00 2015 15:56:00 DIS Outpatient Marlene EDWARD, [facility] W.END [id number] 05/16/2015 13:21:00 2015 15:14:00 DIS [facility] [id number] 05/20/2015 13:30:00 2015 13:30:00 CAN Outpatient Marlene EDWARD, Isidro Osorio [facility] MARIE
--- OUTSIDE RECORDS SUMMARY | 2016-08-29 13:41 | XMS REPORT | Continuity of Care Document ---
Author Author [facility] Organization [facility] Address Unknown Phone Unavailable Allergies Active Description Code Type Severity Reaction Onset Reported/Identified Relationship to Patient Clinical Status Yes BACTRIM [id number] Drug Allergy N/A N/A Yes IBUPROFEN 5640 Drug Allergy N/A N/A Yes PSEUDOEPHEDRINE HCL 55592 Drug Allergy N/A N/A Yes No Known [...] [employer] D64.9 ANEMIA, UNSPECIFIED 05/16/2015 Thomas EDAWRD, [employer] E11.9 TYPE 2 DIABETES MELLITUS [...] Procedures Code Description Performed By Performed On [id number] INSERTION OF FEEDING DEVICE INTO STOMACH, PERC FRANCISCO Westhoff DO, Jolynn C 05/16/2015 [id number] INSPECTION OF UPPER INTESTINAL TRACT, ENDO Westhoff DO, Jolynn C 05/16/2015 [id number] INSPECTION OF LOWER INTESTINAL TRACT, ENDO Westhoff [...] Status Pt. Type Provider Facility Loc./Unit Complaint [id number] 08/08/2015 10:00:00 2015 10:00:00 CAN Preadkrystin Mckinney MD, [facility] W.HBO [id number] 06/04/2015 11:06:00 2015 15:56:00 DIS Outpatient Marlene EDWARD, [facility] W.END [id number] 05/16/2015 13:21:00 2015 15:14:00 DIS [facility] [id number] 05/20/2015 13:30:00 2015 13:30:00 CAN Outpatient Marlene EDWARD, Isidro Osorio [facility] MARIE
--- OUTSIDE RECORDS SUMMARY | 2016-08-29 13:42 | XMS REPORT | Summary of Care ---
Author Author Johnnie Starkey, Manas Organization Unknown Address Unknown Phone Unavailable Care Team Providers Care Monument Erector Name Role Phone Manas Blair M.D. Unavailable Unavailable MaamebreeRob Unavailable Unavailable Functional Status Name Dates Details Functional status health issues are not documented Status: Name Dates Details Cognitive status health issues are not documented Status: Problems Name Dates Details Full code status (V49.89, Z78.9) Status: Active Pneumonitis due to inhalation of food and vomit (507.0, J69.0) Status: Active Other postprocedural complications and disorders of respiratory system, not elsewhere classified (997.39, J95.89) Status: Active Diabetes mellitus, type 2 (250.00, E11.9) Status: Active Schizophrenia, unspecified (295.90, F20.9) Status: Active Major depressive disorder, recurrent episode, severe, with psychosis (296.34, F33.3) Status: Active Bipolar disorder, unspecified (296.80, F31.9) Status: Active Allergic rhinitis (477.9, J30.9) Status: Active Iron deficiency anemia, unspecified (280.9, D50.9) Status: Active Hyperlipemia (272.4, E78.5) Status: Active Hypercholesteremia (272.0, E78.00) Status: Active Pain, generalized (780.96, R52) Status: Active Convulsion (780.39, R56.9) Status: Active Major depressive disorder, single episode (296.20, F32.9) Status: Active Constipation (564.00, K59.00) Status: Active 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 * Start 02-Jun-2015 Active Aspirin Childrens 81 MG Oral Tablet Chewable one tablet per gastric tube * Refills: 0 Manas Blair M.D. * Start 02-Jun-2015 Active Benztropine Mesylate 1 MG Oral Tablet TAKE 1 TABLET TWICE DAILY per gastric tube * Refills: 0 Manas Blair M.D. * Start 02-Jun-2015 Active Docusate Sodium 50 MG/5ML Oral Liquid TAKE 10 ML Twice daily * Refills: 0 Manas Blair M.D. * Start 02-Jun-2015 Active Flonase Allergy Relief 50 MCG/ACT Nasal Suspension USE 2 SPRAYS IN EACH NOSTRIL DAILY * Refills: 0 Manas Blair M.D. * Start 02-Jun-2015 Active LamoTRIgine 100 MG Oral Tablet TAKE 3 TABLET Daily per gastric tube * Refills: 0 Manas Blair M.D. * Start 02-Jun-2015 Active Loratadine 10 MG Oral Tablet TAKE 1 TABLET DAILY. * Quantity: 30 Refills: 0 Manas Blair M.D. * Start 02-Jun-2015 Active Potassium Chloride ER 10 MEQ Oral Tablet Extended Release TAKE 1 TABLET DAILY. * Quantity: 90 Refills: 3 Manas Blair M.D. * Start 02-Jun-2015 Active Omeprazole 40 MG Oral Capsule Delayed Release TAKE 1 CAPSULE Daily * Quantity: 30 Refills: 0 Manas Blair M.D. * Start 02-Jun-2015 Active QUEtiapine Fumarate 300 MG Oral Tablet Take 1 tablet twice daily * Refills: 0 Manas Blair M.D. * Start 02-Jun-2015 Active QUEtiapine Fumarate 50 MG Oral Tablet TAKE 1.5 TABLET Twice daily * Refills: 0 Manas Blair M.D. * Start 02-Jun-2015 Active Senna 8.6 MG Oral Tablet Take 1 tablet twice daily * Refills: 0 Manas Blair M.D. * Start 02-Jun-2015 Active Sertraline HCl - 100 MG Oral Tablet TAKE TWO TABLETS BY MOUTH EVERY DAY * Quantity: 60 Refills: 5 Voormaylin M.Jo., Manas * Start 02-Jun-2015 Active TraZODone HCl - 100 MG Oral Tablet TAKE 1 TABLET AT BEDTIME. * Quantity: 30 Refills: 5 Voorman M.D., Manas * Start 02-Jun-2015 Active MetFORMIN HCl - 500 MG Oral Tablet TAKE 1 TABLET TWICE DAILY WITH MEALS. * Quantity: 60 Refills: 0 Nicholasormaylin Cotton.Jo., Manas * Start 28-Jul-2015 Active Ferrous Sulfate 220 (44 Fe) MG/5ML Oral Elixir TAKE 300 MG Daily * Refills: 0 Voormaylin M.Jo., Manas * Start Active Glucerna 1.5 Yuniel Oral Liquid TAKE 1800 ML * Refills: 0 Nicholasorman M.Jo., Manas * Start Active Polyethylene Glycol Powder 17gm daily * Refills: 0 Johnnie M.Jo., Manas * Start Active Allergies and Adverse Reactions Name Dates Details Bactrim TABS (Allergy) Status: Active ibuprofen (Allergy) Status: Active pseudoephedrine (Allergy) Status: Active Procedures Procedure Dates Details History of Appendectomy History of Knee Arthroscopy With Medial And Lateral Meniscectomy History of Myringotomy - With Ventilating Tube Insertion History of Tympanoplasty Procedures not documented Immunization Name Dates Details MMR on: October-1967 Td on: 24-Apr-2012 Family History Name Dates Details Family history of hyperlipidemia (V18.19, Z83.49) Status: Active Family history of Autoimmune liver disease (573.8, K76.89) Status: Active Family history of hepatic cirrhosis (V18.59, Z83.79) Status: Active Family history of hypertension (V17.49, Z82.49) Status: Active Family history of Tubular adenoma of colon (211.3, D12.6) Status: Active Family history of malignant neoplasm of thyroid (V16.8, Z80.8) Status: Active Family history of chronic renal impairment (V18.69, Z84.1) Status: Active Name Dates Details Family history of cardiomyopathy (V17.49, Z82.49) Status: Active Family history of Glomerulonephritis, proliferative (583.0, N05.8) Status: Active Family history of congestive heart failure (V17.49, Z82.49) Status: Active Family history of End-stage renal disease (585.6, N18.6) Status: Active Family history of gout (V18.19, Z82.69) Status: Active Family history of hyperlipidemia (V18.19, Z83.49) Status: Active Family history of diabetes mellitus (V18.0, Z83.3) Status: Active Name Dates Details Family history of hyperlipidemia (V18.19, Z83.49) Status: Active Family history of malignant neoplasm of thyroid (V16.8, Z80.8) Status: Active Family history of chronic renal impairment (V18.69, Z84.1) Status: Active Name Dates Details Family history of diabetes mellitus (V18.0, Z83.3) Status: Active Name Dates Details Family history of myocardial infarction (V17.3, Z82.49) Status: Active Social History Name Dates Details - Status: Name Dates Details Never smoker Vital Signs Date Test Result Details No Known Vitals to report Results Date Description Value Details Results not documented Plan of Care Name Dates Details Planned Observations Planned Goals not documented Instructions Name Dates Details Instructions not documented Encounters Appointment; Manas Blair M.D. Encounter Diagnosis: Problem not documented On 05-Jan-2016 09:00 Appointment; Manas Blair M.D. Encounter Diagnosis: Problem not documented On 09:00 Appointment; Manas Blair M.D. Encounter Diagnosis: Problem not documented On 28-Jul-2015 09:00 Appointment; Manas Blair M.D. Encounter Diagnosis: Problem not documented On 02-Jun-2015 10:45
--- OUTSIDE RECORDS SUMMARY | 2016-08-29 13:42 | XMS REPORT | Referral Summary ---
Author Author [facility], Family [facility] Organization [facility] Address Unknown Phone Unavailable Care Team Providers Care Clinical Documentation Specialist Name Role Phone Rob Everett Primary Care Physician [phone] Encounter VC Date(s): 04/05/16 - 04/05/16 [facility], [address] [place] [id number] Discharge Diagnosis: Dehydration Discharge Diagnosis: Motor dysphasia Discharge Disposition: 01-Home or Self Care Attending Physician: Rob Everett DO Admitting Physician: Rob Everett DO Vital Signs Most recent to 1 oldest [Reference Range]: Peripheral Pulse 71 bpm Rate [60-100 bpm] (04/05/16 10:22 AM) Respiratory Rate 16 br/min [14-20 br/min] (04/05/16 10:22 AM) Blood Pressure 92/62 mmHg [90-140/60-90 mmHg] (04/05/16 10:22 AM) SpO2 99 % (04/05/16 10:22 AM) Problem List Condition Effective Dates Status Health [...] Instructions, # 1 Each, 0 Refill(s), Pharmacy: [id number], to check bld sugars fasting and 2hrpp after last meal three days of we... Start Date: 07/08/15 Status: Ordered Glucometer Lancets (DME) DME Item AccuCheck Soft Click Lancets. SIG: Use one lancet BID every other day. DX: E11.9, See Instructions, # 1 boxes, 6 Refill(s), Pharmacy: [facility] [id number], AccuCheck Soft Click Lancets. SIG: Use one lancet BID every other day. DX: E... Start Date: 02/16/16 Status: Ordered Glucometer strips (DME) DME Item PT USES ACCUCHECK SHORTY TO CHECK BLOOD SUGAR 4 TIMES DAILY FOR E11.65, See Instructions, # 100 Each, 1 Refill(s), Pharmacy: [facility] [id number] , PT USES ACCUCHECK SHORTY TO CHECK [...] days., # 22 g, 0 Refill(s), Pharmacy: [email or web address], [facility] Start Date: 03/17/16 Status: [...] Visit Note Author: Rob Everett DO Date: 04/05/16 Assessment/Plan 1.Dehydration 1. His hydration status appears to be adequate at this time. 2. Continue with current volume by feeding tube. 3. Follow-up in 2 months for reevaluation. 4. ER report was reviewed in detail, all questions were answered. Ordered: Office Visit Level 4 Est 52277 2.Motor dysphasia 1. Based on neurology and ENT evaluation, he has deficiency and motor function of the upper airway. Continue with nothing by mouth and feeding tube for nutrition and hydration. 2. Follow-up in 2 months for reevaluation. 3. If you develop respiratory problems then we will assess him for aspiration pneumonia. Ordered: Office Visit Level 4 Est 80128
--- OUTSIDE RECORDS SUMMARY | 2016-08-29 13:42 | XMS REPORT | Continuity of Care Document ---
Author Author [facility] Organization [facility] Address Unknown Phone Unavailable Support Name Relationship Address Phone MARIELENA NOEL MD Caregiver [address] [place] [address] Unavailable RUSTY LEIJA DO Caregiver [address] [place] [place] [address] Unavailable APRIL GARCIA (LEGAL GUARDIAN) Next Of Kin [address], [place] [id number] CP Insurance Providers Guarantor Flex Freedman Address [address] [place] [address] SISTE Email DENIED/NO TO PORTAL Payer [facility] Community Plan Policy Number [id number] Subscriber's Name Flex Freedman Relationship 18 Self Effective Date 16 Expiration Date 16 Payer Medicare Policy Number [id number] Subscriber's Name Flex Freedman Relationship 18 Self Effective Date 08 Advance Directives Directive Response Recorded Date/Time Advanced Directives Type Living Will DPOA for Healthcare 03/31/16 8:28pm Chief Complaint and Reason for Visit Chief Complaint Dizzy Reason for Visit Dizziness Pre-syncope Volume depletion Problems Active Problems Medical Problem Onset Date Status Abdominal pain Unknown Resolved Allergic rhinitis Unknown Chronic Community acquired pneumonia Unknown Acute Depression Unknown Acute Fever Unknown Acute Fever Unknown Acute GERD with esophagitis Unknown Chronic Intellectual disability Unknown Chronic Mental retardation Unknown Chronic Mixed hyperlipidemia Unknown Chronic Recurrent aspiration bronchitis/pneumonia Unknown Chronic Schizophrenia Unknown Chronic 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 Sideropenic dysphagia Unknown Chronic Sinusitis Unknown Acute Type 2 diabetes mellitus Unknown Chronic Vomiting and diarrhea Unknown Resolved Past Problems Medical Problem Onset Date Colitis Unknown Dizziness Unknown Feeding tube dysfunction Unknown Pre-syncope Unknown Sepsis Unknown Volume depletion Unknown Medications Current Home Medications Medication Dose Units Route Directions Days Qty Instructions Start Date Acetaminophen 325 Mg Tablet 325-650 Mg G Tube Every 4-6 Hours as needed for Pain/Fever 03/31/16 Acetaminophen (Acetaminophen Extra Strength) 500 Mg Tablet 1,000 Mg G Tube Every 12 Hours as needed for Pain 06/22/15 Amox Tr/Potassium Clavulanate (Amox Tr-K Clv 875-125 Mg Tab) 875 Mg Tablet 875 Mg Oral Twice A Day 7 Days 14 Tablet 03/24/16 Aspirin (Ecotrin) 81 Mg Tablet. 81 Mg G Tube Daily 06/17/08 Bacitracin 28.4 Gm Oint...g. 1 Applic Topically Twice A Day as needed for Prn Orders 03/31/16 Benztropine Mesylate 1 Mg Tablet 1 Mg G Tube Twice A Day 08/28/13 Bismuth Subsalicylate (Pepto-Bismol) 262 Mg/15 Ml Oral.susp 2 Tbs Oral Every Hour as needed for Prn Orders 03/31/16 Ferrous Sulfate 220 Mg/5 Ml Solution 6.8 Ml G Tube Give With Breakfast 03/31/16 Fluticasone Propionate (Flonase Allergy Relief 50 Mcg/Actuation Nasal) 9.9 Ml [place].susp 2 [place] Nasal Daily as needed for Prn Orders 06/22/15 Guaifenesin 100 Mg/5 Ml Liquid 200 Mg G Tube Every 4 Hours as needed for Cough/Congestion 03/31/16 Lamotrigine 100 Mg Tablet 100 Mg G Tube Daily TAKE WITH 200 MG TO EQUAL 300 MG DAILY 06/22/15 Lamotrigine (Lamictal) 200 Mg Tablet 200 Mg G Tube Daily TAKE WITH 100 MG TO EQUAL 300 MG DAILY 08/28/13 Lidocaine/Prilocaine (Lidocaine-Prilocaine Cream) 30 Gm Cream..g. 1 Applic Topical As Needed as needed for Prn Orders 03/31/16 Loratadine (Loratadine Allergy) 5 Mg/5 Ml Solution 10 Mg G Tube Daily 03/31/16 Menthol/Zinc Oxide (Calmoseptine Ointment) 71 Gm Oint...g. 1 Applic Topically Daily Apply 2 times a day. 03/31/16 Metformin Hcl 500 Mg Tablet 250 Mg G Tube Twice Daily With Meals 09/28/15 Nut.tx.gluc.intoler,Lac-Fr,Soy (Glucerna 1.5 Yuniel) 237 Ml Liquid 237 Ml Oral Daily 03/31/16 Omeprazole (Prilosec) 40 Mg Capsule.dr 40 Mg G Tube Daily Potassium Chloride 10 Meq Capsule.er 10 Meq G Tube Give With Breakfast 09/28/15 Quetiapine Fumarate (Seroquel) 300 Mg Tablet 300 Mg G Tube Twice A Day 06/17/08 Sertraline Hcl (Zoloft) 100 Mg Tablet 200 Mg G Tube Daily Tolnaftate (Tinactin) 150 Gm [place] 1 Applic Topically Daily as needed for Prn Orders 03/31/16 Trazodone Hcl 150 Mg Tablet 150 Mg G Tube Bedtime 03/31/16 Past Home Medications Medication Directions Ordered Status Amoxicillin 250 Mg/5 Ml Susp.recon, 2 Tsp Oral Three Times A Day 03/22/16 Discontinued Docusate Sodium (Docu Liquid) 50 Mg/5 Ml Liquid, 10 Ml G Tube Twice A Day Discontinued Magnesium Hydroxide (Milk Of Magnesia) 2,400 Mg/10 Ml Oral.susp, 30 Ml G Tube Every 3 Days as needed for Constipation 06/22/15 Discontinued Polyethylene Glycol 3350 (Miralax) 17 Gm Powd.pack, 1 Packet G Tube Daily Discontinued Potassium Chloride (K-Dur) 10 Meq Tab.prt.sr, 10 Meq G Tube Daily 06/17/08 Discontinued Quetiapine Fumarate (Seroquel) 50 Mg Tablet, 50 Mg G Tube Twice A Day Discontinued Sennosides (Senna) 8.6 Mg Tablet, 8.6 Mg G Tube Twice A Day 06/22/15 Discontinued Social History Social History Problem Response Recorded Date/Time Onset Date Status Hx Substance Use No 03/31/2016 8:43pm Not Applicable Not Applicable Hx Alcohol Use No 03/31/2016 8:43pm Not Applicable Not Applicable Tobacco Usage none 08/29/2013 6:15am Not Applicable Not Applicable Query Response Start Date Stop Date Smoking Status Never smoker Hospital Discharge Instructions No hospital discharge instructions. Plan of Care Discharge Date 03/31/16 10:59pm Disposition 01 DISCHARGED HOME, SELF-CARE Condition at Discharge Improved Instructions/Education Provided Dizziness, Nonvertigo Prescriptions See Medication Section Referrals RUSTY LEIJA DO Address: [address] [place] [address] [place] [phone] Additional Instructions/Education Follow with Dr. Leija tomorrow, for re- evaluation and to discuss diet/hydration. Follow treatment plan. Care Plan and Goals Physician Care Plan Problem: Presyncope, dizziness, volume depletion Goal: Follow up with primary care provider Instructions: Take medications and follow care plan as discussed/written Functional Status No functional status results. Allergies, Adverse Reactions, Alerts Allergen Type Severity Reaction Status Last Updated Pseudoephedrine Allergy Unknown Active 03/31/16 Ibuprofen Allergy Unknown Active 03/31/16 Sulfamethoxazole Allergy Unknown Active 03/31/16 Trimethoprim Allergy Unknown Active 03/31/16 Immunizations Query Response on File Recorded Date/Time Hx Influenza Vaccination Yes 03/22/16 5:05am Hx Pneumococcal Vaccination No 03/22/16 5:05am Hx Influenza Vaccination Yes 03/22/16 5:05am Influenza Vaccine Hx 12/201503/31/16 8:43pm Vital Signs Acute Vital Signs Vital Response Date/Time Temperature (Fahrenheit) 97.5 deg F (96.8 - 99.1) 03/31/2016 10:59pm Temperature (Calculated Celsius) 36.17409 degrees C (36.0 - 37.3) 03/31/2016 10:59pm Pulse Rate (adult) 58 bpm (60 - 100) 03/31/2016 10:59pm Respiratory Rate 20 breaths/min (10 - 20) 03/31/2016 10:59pm O2 Sat by Pulse Oximetry 100 % (90 - 100) 03/31/2016 10:59pm Oxygen Delivery Method Room Air 03/24/2016 3:57pm Blood Pressure 116/59 mm Hg 03/31/2016 10:59pm Blood Pressure Source Automatic Cuff 03/24/2016 3:57pm Height (Feet) 6 feet 03/31/2016 8:28pm Height (Inches) 1.00 inches 03/31/2016 8:28pm Weight (Kilograms) 71.900 kg 03/31/2016 8:28pm Body Mass Index (BMI) 20.0 03/31/2016 8:28pm Results Laboratory Results Test Name Result Units Flags Reference Collection Date/Time Result Date/ Time Comments Neutrophils % (Manual) 70.0 % H 33-66 03/22/2016 2:02am 03/22/2016 2: 51am Band Neutrophils % 22.0 % H 0-6 03/22/2016 2:02am 03/22/2016 2:51am Lymphocytes % (Manual) 8.0 % L 23-45 03/22/2016 2:02am 03/22/2016 2: 51am Band Neutrophils # 3.0 T/MM3 03/22/2016 2:02am 03/22/2016 2:51am Absolute Neutrophils (Manual) 9.6 T/MM3 H 1.8-7.7 03/22/2016 2:02am 2:51am Lymphocytes # (Manual) 1.1 T/MM3 1-4.8 03/22/2016 2:02am 03/22/2016 2: 51am Red Cell Morphology Comment NORMAL 03/22/2016 2:02am 03/22/2016 2: 51am Magnesium Level 2.1 MG/DL 1.6-2.3 03/23/2016 4:17am 03/23/2016 5:37am Plasma Lactate 0.9 MMOL/L 0.6-2.2 03/22/2016 8:57am 03/22/2016 9:23am Procalcitonin 4.56 NG/ML *H 03/24/2016 5:09am 03/24/2016 7:00am PCT </ =0.5 ng/mL - sepsis not likely; PCT >0.5 and </=2 ng/mL - sepsis possible; PCT >2 ng/mL - sepsis likely; PCT >/=10 ng/mL - systemic inflammatory response - sepsis or septic shock highly indicated. Stool Campylobacter PCR NEGATIVE NEGATIVE 03/22/2016 3:18pm 2015 6:19pm Stool C. difficile Toxin (PCR) NEGATIVE NEGATIVE 03/22/2016 3:18pm 6:19pm Stool Plesiomonas shigelloides PCR NEGATIVE NEGATIVE 03/22/2016 3: 18pm 03/22/2016 6:19pm Stool Salmonella PCR NEGATIVE NEGATIVE 03/22/2016 3:18pm 03/22/2016 6 :19pm Stool Vibrio (PCR) NEGATIVE NEGATIVE 03/22/2016 3:18pm 03/22/2016 6: 19pm Stool Vibrio cholera (PCR) NEGATIVE NEGATIVE 03/22/2016 3:18pm 2015 6:19pm Stool Yersinia enterocolitica (PCR) NEGATIVE NEGATIVE 03/22/2016 3: 18pm 03/22/2016 6:19pm Stool Enteroaggregative E. coli PCR NEGATIVE NEGATIVE 03/22/2016 3: 18pm 03/22/2016 6:19pm Stool Enteropathogenic E. coli (PCR N/A NEGATIVE 03/22/2016 3:18pm 6:19pm Stool Enterotoxigenic Ecoli PCR NEGATIVE NEGATIVE 03/22/2016 3:18pm 03/22/2016 6:19pm Stool E. coli Shiga Toxins NEGATIVE NEGATIVE 03/22/2016 3:18pm 2015 6:19pm Stool E coli O157 PCR N/A NA/NEG 03/22/2016 3:18pm 03/22/2016 6:19pm Stool Shigella/EIEC (PCR) NEGATIVE NEGATIVE 03/22/2016 3:18pm 2015 6:19pm Stool Cryptosporidium PCR NEGATIVE NEGATIVE 03/22/2016 3:18pm 2015 6:19pm Stool Cyclospora species Detection NEGATIVE NEGATIVE 03/22/2016 3: 18pm 03/22/2016 6:19pm Stool Entamoeba (PCR) NEGATIVE NEGATIVE 03/22/2016 3:18pm 03/22/2016 6:19pm Stool Giardia Lamblia PCR NEGATIVE NEGATIVE 03/22/2016 3:18pm 2015 6:19pm Stool Adenovirus (PCR) NEGATIVE NEGATIVE 03/22/2016 3:18pm 2015 6:19pm Stool Astrovirus (PCR) NEGATIVE NEGATIVE 03/22/2016 3:18pm 2015 6:19pm Stool Norovirus GI/GII PCR NEGATIVE NEGATIVE 03/22/2016 3:18pm 2015 6:19pm Stool Rotavirus A PCR NEGATIVE NEGATIVE 03/22/2016 3:18pm 03/22/2016 6:19pm Stool Sapovirus (PCR) NEGATIVE NEGATIVE 03/22/2016 3:18pm 03/22/2016 6:19pm Urinalysis Comment MICROSCOPIC NOT IND. 03/22/2016 3:07am 2015 3:15am Lamotrigine (Lamictal) Level 4.4 mcg/mL 03/23/2016 4:17am 03/24/2016 2:46pm Reference Range: 2.5 - 15.0 ADDITIONAL INFORMATION This test was developed and its performance characteristics determined by [facility] in a manner consistent with CLIA requirements. This test has not been cleared or approved by the U.S. Food and Drug Administration. Test Performed by: [facility] [address] [place] [address] Neck Pinner: Alberto Rivera II, M.D., Ph.D. Lamotrigine performed at [facility], [address] [place] [address] Managed Care Nurse Nicole Renee MD White Blood Count 3.7 T/MM3 L 4.5-11.0 03/31/2016 8:45pm 03/31/2016 9: 22pm Red Blood Count 4.25 M/MM3 L 4.50-5.90 03/31/2016 8:45pm 03/31/2016 9: 22pm Hemoglobin 12.2 GM/DL L 13.5-17.5 03/31/2016 8:45pm 03/31/2016 9:22pm Hematocrit 36.8 % L 41-53 03/31/2016 8:45pm 03/31/2016 9:22pm Mean Corpuscular Volume 86.6 UM3 80-100 03/31/2016 8:45pm 03/31/2016 9: 22pm Mean Corpuscular Hemoglobin 28.7 UUG 26-34 03/31/2016 8:45pm 2015 9:22pm Mean Corpuscular Hemoglobin Concent 33.2 GM/DL 31-37 03/31/2016 8:45pm 03/31/2016 9:22pm RDW Standard Deviation 42.0 FL 36.9-50.2 03/31/2016 8:45pm 03/31/2016 9 :22pm Platelet Count 315 T/MM3 D 130-400 03/31/2016 8:45pm 03/31/2016 9:22pm Mean Platelet Volume 10.4 UM3 9.4-12.4 03/31/2016 8:45pm 03/31/2016 9: 22pm Neutrophils (%) (Auto) 48.2 % 33-66 03/31/2016 8:45pm 03/31/2016 9: 22pm Lymphocytes (%) (Auto) 43.0 % 23-45 03/31/2016 8:45pm 03/31/2016 9: 22pm Monocytes (%) (Auto) 5.8 % 0-9.0 03/31/2016 8:45pm 03/31/2016 9:22pm Eosinophils (%) (Auto) 1.4 % 0-4 03/31/2016 8:45pm 03/31/2016 9:22pm Basophils (%) (Auto) 0.5 % 0-2 03/31/2016 8:45pm 03/31/2016 9:22pm Immature Granulocyte % (Auto) 1.1 % H 0.0-0.5 03/31/2016 8:45pm 2015 9:22pm Absolute Neutrophils (auto) 1.8 T/MM3 1.8-7.7 03/31/2016 8:45pm 2015 9:22pm Absolute Lymphocytes (auto) 1.6 T/MM3 1-4.8 03/31/2016 8:45pm 2015 9:22pm Absolute Monocytes (auto) 0.2 T/MM3 0-0.8 03/31/2016 8:45pm 03/31/2016 9:22pm Absolute Eosinophils (auto) 0.1 T/MM3 0-0.5 03/31/2016 8:45pm 2015 9:22pm Absolute Basophils (auto) 0.0 T/MM3 0-0.2 03/31/2016 8:45pm 03/31/2016 9:22pm Absolute Immature Granulocyte (auto 0.04 T/MM3 H 0.00-0.03 03/31/2016 8: 45pm 03/31/2016 9:22pm Icterus Index < 2 0-7 03/31/2016 8:45pm 03/31/2016 9:22pm Chemistry Specimen Hemolysis < 15 0-25 03/31/2016 8:45pm 03/31/2016 9 :22pm 0-25: Specimen Exhibited No Hemolysis. Turbidity < 20 0-20 03/31/2016 8:45pm 03/31/2016 9:22pm Sodium Level 142 MEQ/L 134-144 03/31/2016 8:45pm 03/31/2016 9:22pm Potassium Level 4.2 MEQ/L 3.6-5 03/31/2016 8:45pm 03/31/2016 9:22pm Chloride Level 104 MEQ/L 98-107 03/31/2016 8:45pm 03/31/2016 9:22pm Carbon Dioxide Level 25 MEQ/L 22-30 03/31/2016 8:45pm 03/31/2016 9: 22pm Anion Gap 13 MEQ/L 5-15 03/31/2016 8:45pm 03/31/2016 9:22pm Blood Urea Nitrogen 27.0 MG/DL H 9-20 03/31/2016 8:45pm 03/31/2016 9: 22pm Creatinine 0.7 MG/DL L 0.8-1.5 03/31/2016 8:45pm 03/31/2016 9:22pm BUN/Creatinine Ratio 39 RATIO H 6-26 03/31/2016 8:45pm 03/31/2016 9: 22pm Glomerular Filtration Rate Calc 120 03/31/2016 8:45pm 03/31/2016 9: 22pm Glucose Level 93 MG/DL 75-110 03/31/2016 8:45pm 03/31/2016 9:22pm Calculated Osmolality 278 MOSM/KG 261-280 03/31/2016 8:45pm 03/31/2016 9:22pm Calcium Level 10.1 MG/DL 8.4-10.2 03/31/2016 8:45pm 03/31/2016 9:22pm Total Bilirubin 0.40 MG/DL 0.20-1.30 03/31/2016 8:45pm 03/31/2016 9: 22pm Alkaline Phosphatase 178 U/L H 38-126 03/31/2016 8:45pm 03/31/2016 9: 22pm Total Protein 7.6 G/DL 6.3-8.2 03/31/2016 8:45pm 03/31/2016 9:22pm Albumin 4.2 G/DL 3.5-5.0 03/31/2016 8:45pm 03/31/2016 9:22pm Globulin 3.4 G/DL 2.4-3.6 03/31/2016 8:45pm 03/31/2016 9:22pm Albumin/Globulin Ratio 1.2 RATIO 1.1-2.2 03/31/2016 8:45pm 03/31/2016 9 :22pm Aspartate Amino Transf (AST/SGOT) 30 U/L 17-59 03/31/2016 8:45pm 2015 9:22pm Alanine Aminotransferase (ALT/SGPT) 36 U/L 21-72 03/31/2016 8:45pm 9:22pm Troponin I < 0.012 ng/ml 0-0.12 03/31/2016 8:45pm 03/31/2016 9:33pm Troponin values with a difference of 55% increase from orginal troponin value represent a true biological DELTA value. (%increase Calc=Orginal Troponin value, divided by subsequent Troponin value, multiplied by 100) Urine Collection Type VOIDED-NOT CC-MIDSTR 03/31/2016 9:52pm 2015 9:57pm Urine Color YELLOW YELLOW 03/31/2016 9:52pm 03/31/2016 9:57pm Urine Turbidity SL CLOUDY CLEAR 03/31/2016 9:52pm 03/31/2016 9:57pm Urine Specific Godfrey 1.010 L 1.015-1.025 03/31/2016 9:52pm 2015 9:57pm Urine pH >=9.0 H 5.0-8.0 03/31/2016 9:52pm 03/31/2016 9:57pm Urine Leukocyte Esterase NEGATIVE NEGATIVE 03/31/2016 9:52pm 2015 9:57pm Urine Nitrite NEGATIVE NEGATIVE 03/31/2016 9:52pm 03/31/2016 9:57pm Urine Protein 1+ A NEGATIVE 03/31/2016 9:52pm 03/31/2016 9:57pm Urine Glucose (UA) NEGATIVE NEGATIVE 03/31/2016 9:52pm 03/31/2016 9: 57pm Urine Ketones 1+ A NEGATIVE 03/31/2016 9:52pm 03/31/2016 9:57pm Urine Urobilinogen 0.2 EU/DL NORMAL 03/31/2016 9:52pm 03/31/2016 9: 57pm Urine Bilirubin NEGATIVE NEGATIVE 03/31/2016 9:52pm 03/31/2016 9: 57pm Urine Blood NEGATIVE NEGATIVE 03/31/2016 9:52pm 03/31/2016 9:57pm Urine WBC 0-1 /HPF 0-5 03/31/2016 9:52pm 03/31/2016 10:03pm Urine RBC NONE SEEN /HPF 0-3 03/31/2016 9:52pm 03/31/2016 10:03pm Urine Squamous Epithelial Cells 0-5 03/31/2016 9:52pm 03/31/2016 10 :03pm Urine Bacteria NONE SEEN NEGATIVE 03/31/2016 9:52pm 03/31/2016 10: 03pm Urine Amorphous Phosphates MANY 03/31/2016 9:52pm 03/31/2016 10: 03pm Urine Sperm PRESENT 03/31/2016 9:52pm 03/31/2016 10:03pm Urine Culture Indicated CULT NOT INDICATED 03/31/2016 9:52pm 2015 10:03pm Procedures Procedure Status Date Provider(s) CHEST X-RAY 2VW FRONTAL&LATL Completed 01/05/16 Encounters Encounter Location Arrival/Admit Date Discharge/Depart Date Attending Provider Departed Emergency Room [facility] 03/31/16 8:21pm 03/31/16 10: 59pm MARIELENA NOEL MD Discharged Inpatient [facility] 03/23/16 7:22pm 03/24/16 5:52pm MARIANA ROBLEDO MD Registered Clinic [facility] 01/05/16 9:50am RODOLFO LACEY MD Recent Diagnosis
--- OUTSIDE RECORDS SUMMARY | 2016-08-29 13:42 | XMS REPORT | Referral Summary ---
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 Name Role Phone Rob Everett Primary Care Physician [phone] Encounter VC Date(s): 02/03/16 - 02/03/16 [facility] [address] [place] [id number] Discharge Diagnosis: Diabetes mellitus, type 2 Discharge Diagnosis: Aspiration of food Discharge Disposition: 01-Home or Self Care Attending Physician: Rob Everett DO Admitting Physician: Rob Everett DO Vital Signs Most recent to 1 oldest [Reference Range]: Temperature Tympanic 36.4 degC [36.6-38.1 degC] *LOW* (02/03/16 8:04 AM) Peripheral Pulse 95 bpm Rate [60-100 bpm] (02/03/16 8:04 AM) Blood Pressure 104/60 mmHg [90-140/60-90 mmHg] (02/03/16 8:04 AM) Problem List Condition Effective Dates Status [...] Instructions, # 1 Each, 0 Refill(s), Pharmacy: [facility], to check bld sugars fasting and 2hrpp after last meal three days of we... Start Date: 07/08/15 Status: Ordered Glucometer strips (DME) DME Item PT USES ACCUCHECK SHORTY TO CHECK BLOOD SUGAR 4 TIMES DAILY FOR E11.65, See Instructions, # 100 Each, 1 Refill(s), Pharmacy: [facility] [id number] , PT USES ACCUCHECK SHORTY TO CHECK BLOOD SUGAR 4 TIMES DAILY FOR E11.65, Supply Start Date: 07/27/15 Status: Ordered lamoTRIgine 200 mg oral tablet mg tabs, Oral, BID, 0 Refill(s) Start Date: 06/10/15 Status: Ordered loratadine 0 Refill(s) Start Date: 06/10/15 Status: Ordered Milk of Magnesia Oral, Bedtime (once a day), 0 Refill(s) Start Date: 06/10/15 Status: Ordered potassium chloride 10 mEq oral [...] Visit Note Author: Rob Everett DO Date: 02/03/16 Assessment/Plan Aspiration of food 1. Chest x-ray ordered today, report is pending 2. Accolate, his lungs sounds clear and he appears to be in no respiratory distress. 3. Continue with recommendations regarding oral foods as per the ENT specialist. Ordered: Office Visit Level 4 Est 42069 XR Chest 2 Views Diabetes mellitus, type 2 1. Blood sugar readings are well controlled. 2. Continue with current feeding regimen. 3. Continue checking Accu-Cheks as previous, call for blood sugars greater than 180. 4. Follow-up in 3 months for reevaluation Ordered: Office Visit Level 4 Est [id number] XR Chest 2 Views
--- OUTSIDE RECORDS SUMMARY | 2016-08-29 13:42 | XMS REPORT | Referral Summary ---
Author Author [facility], [facility] Organization [facility]EX[facility] Dominguez Newton [facility] Address Unknown Phone Unavailable Care Team Providers Care Lab Assistant Name Role Phone Rob Everett Primary Care Physician [phone] Encounter VC Date(s): 05/19/16 - 05/19/16 [facility] Keene Newton, [address] [place] [id number] Discharge Diagnosis: Attention to G-tube Discharge Diagnosis: Dark stools Discharge Diagnosis: External hemorrhoid Discharge Disposition: 01-Home or Self Care Attending Physician: Rob Everett DO Admitting Physician: Rob Everett DO Vital Signs Most recent to 1 oldest [Reference Range]: Temperature Tympanic 36.5 degC [36.6-38.1 degC] *LOW* (05/19/16 11:12 AM) Peripheral Pulse 114 bpm Rate [60-100 bpm] *HI* (05/19/16 11:12 AM) Blood Pressure 115/68 mmHg [90-140/60-90 mmHg] (05/19/16 11:12 AM) SpO2 99 % (05/19/16 11:12 AM) Problem List Condition Effective Dates Status [...] Bactrim Active ibuprofen Active Sudafed Active Medications ACCU-CHEK SHORTY PLUS STRIPS 100'S See Instructions, USE TO TEST BLOOD SUGARS FOUR TIMES DAILY, # 100 strip, eRx: [facility] [id number], USE TO TEST BLOOD SUGARS FOUR TIMES DAILY Start Date: 04/12/16 Status: Ordered acetaminophen 500-1000 mg, G-Tube, q12hr, as needed [...] mL, G-Tube, Daily, # 150 mL, 1 Refill(s), Pharmacy: [facility], 5 mL G-Tube Daily Start Date: 04/21/16 Status: Ordered Flonase 50 mcg/inh nasal spray 1 sprays, Nasal, BID, # 1 Each, 6 Refill(s), Pharmacy: [facility] Start Date: 05/09/16 Stop Date: 12/05/16 Status: Ordered Glucometer (DME) DME Item to check bld sugars fasting and 2hrpp after last meal three days of week. diag - E11.9, See Instructions, # 1 Each, 0 Refill(s), Pharmacy: [facility] [id number], to check bld sugars fasting and 2hrpp after last meal three days of we... Start Date: 07/08/15 Status: Ordered Glucometer Lancets (DME) DME Item AccuCheck Soft Click Lancets. SIG: Use one lancet BID every other day. DX: E11.9, See Instructions, # 1 boxes, 6 Refill(s), Pharmacy: [facility] [address]677, AccuCheck Soft Click Lancets. SIG: Use one lancet BID every other day. DX: E... Start Date: 02/16/16 Status: Ordered Glucometer strips (DME) DME Item PT USES ACCUCHECK SHORTY TO CHECK BLOOD SUGAR 4 TIMES DAILY FOR E11.65, See Instructions, # 100 Each, 1 Refill(s), Pharmacy: [facility] [id number] , PT USES ACCUCHECK SHORTY TO CHECK [...] days., # 22 g, 0 Refill(s), Pharmacy: [facility] Start Date: 03/17/16 Status: Ordered potassium [...] Refill(s) Start Date: 06/10/15 Status: Ordered Results Hematology Most recent to 1 oldest [Reference Range]: WBC [5.0-10.0 10.0 10*3/uL 10*3/uL] (05/19/16 12:41 PM) RBC [3.70-5.20] 4.38 (05/19/16 12:41 PM) Hgb [12.0-16.0 13.0 gm/dL gm/dL] (05/19/16 12:41 PM) Hct [40.0-54.0 %] 38.4 % *LOW* (05/19/16 12:41 PM) MCV [80.0-96.0 fL] 87.7 fL (05/19/16 PM) MCH [26.0-34.0 pg] 29.7 pg (05/19/16 PM) MCHC [32.0-36.0 33.9 gm/dL gm/dL] (05/19/1641 PM) RDW [0.0-14.5 %] 14.5 % (05/19/16 PM) Platelet [150-400 230 10*3/uL 10*3/uL] (05/19/16 PM) MPV [8.8-14.8 fL] 10.1 fL (05/19/16 PM) Neutrophils [50-70 84 % %] *HI* (05/19/16) Lymphocytes [20-40 9 % %] *LOW* (05/19/16) Monocytes [4-8 %] 7 % (05/19/16 PM) Eosinophils [0-6 %] 0 % (05/19/16) Basophils [0-2 %] 0 % (05/19/16 PM) Neutro Absolute 8.38 [2.50-7.00] *HI* (05/19/16 PM) Lymph Absolute 0.92 [1.00-4.00] *LOW* (05/19/16 PM) Crawford Absolute 0.69 [0.20-0.80] (05/19/16: PM) Eos Absolute 0.02 [0.00-0.60] (05/19/16 PM) Baso Absolute 0.02 [0.00-0.30] (05/19/16 PM) Chemistry Most recent to 1 oldest [Reference Range]: Sodium Lvl [135-144 142 mEq/L mEq/L] (05/19/16 PM) Potassium Lvl 4.7 mEq/L [3.5-5.2 mEq/L] (05/19/16 PM) Chloride [99-111 104 mEq/L mEq/L] (05/19/16 PM) CO2 [23-31 mEq/L] 28 mEq/L (2/9/17 12:41 PM) AGAP [3-20] 10 (05/19/16 12:41 PM) BUN [8-26 mg/dL] 35 mg/dL *HI* (05/19/16 12:41 PM) Glucose Lvl [70-99 144 mg/dL mg/dL] *HI* (05/19/16 12:41 PM) Creatinine Lvl 0.95 mg/dL [0.72-1.25 mg/dL] (05/19/16 12:41 PM) eGFR [>60 mL/min] >60 mL/min 1 (05/19/16 12:41 PM) Calcium Lvl 9.7 mg/dL 2 [8.4-10.2 mg/dL] (05/19/16 12:41 PM) Albumin Lvl [3.5-5.0 4.3 gm/dL gm/dL] (05/19/16 12:41 PM) Total Protein 7.3 gm/dL [6.1-7.7 gm/dL] (05/19/16 12:41 PM) Globulin [1.8-4.0 3.0 gm/dL gm/dL] (05/19/16 12:41 PM) ALT [0-55 U/L] 35 U/L (05/19/16 12:41 PM) AST [5-34 U/L] 35 U/L *HI* (05/19/16 12:41 PM) Alk Phos [40-150 193 U/L U/L] *HI* (05/19/16 12:41 PM) Bili Total [0.2-1.2 0.4 mg/dL mg/dL] (05/19/16 12:41 PM) 1Result Comment: Multiply eGFR results by 1.21 for race. 2Result Comment: Please note reference range change effective 05/13/2016. Immunizations Given and Recorded Vaccine Date Status Refusal Reason influenza virus vaccine, inactivated 12/04/15 Given Procedures No data available for this section Social History Social History Type Response Smoking Status Never smoker Assessment and Plan Extracted from: Title: Office Visit Note Author: Rob Everett DO Date: 05/19/16 Assessment/Plan 1.Attention to G-tube 1. The G-tube appears to be in good placement. 2. We will request Hemoccult study and G-tube aspirate which was collected yesterday. Ordered: Office Visit Level 4 Est 25390 2.External hemorrhoid 1. Exam consistent with small inflamed external hemorrhoid. 2. Avoid constipation. 3. Follow-up if worsening presentation. Dark stools 1. His dark stools are likely secondary to his iron replacement. 2. CBC and complete metabolic profile ordered, report is pending. 3. Ova and parasite on stool studies ordered given the provided history of possible parasite from his G-tube. Ordered: CBC w/ Differential Comprehensive Metabolic Panel Occult Blood X 3, Stool Office Visit Level 4 Est 88644 Ova and Parasites
--- OUTSIDE RECORDS SUMMARY | 2016-08-29 13:43 | XMS REPORT | Summary of Care ---
Author Author Johnnie Starkey, Manas Organization Unknown Address Unknown Phone Unavailable Care Team Providers Care Air Marshal Name Role Phone Manas Blair M.D. Unavailable [...]
--- OUTSIDE RECORDS SUMMARY | 2016-08-29 13:43 | XMS REPORT | Referral Summary ---
Author Author [facility] Keene [facility], [facility] Organization [facility]en[facility] Dominguez Newton [facility] Address Unknown Phone Unavailable Care Team Providers Care Rock Contractor Name Role Phone Rob Everett Primary Care Physician [phone] Encounter VC Date(s): 05/09/16 - 05/09/16 [facility] Keene Newton, [address] [place] [id number] Discharge Diagnosis: G tube feedings Discharge Diagnosis: Medication management Discharge Diagnosis: Major depression Discharge Diagnosis: Type 2 diabetes mellitus Discharge Disposition: 01-Home or Self Care Attending Physician: Rob Everett DO Admitting Physician: Rob Everett DO Vital Signs Most recent to 1 oldest [Reference Range]: Peripheral Pulse 83 bpm Rate [60-100 bpm] (05/09/16 10:43 AM) Respiratory Rate 18 br/min [14-20 br/min] (05/09/16 10:43 AM) Blood Pressure 108/68 mmHg [90-140/60-90 mmHg] (05/09/16 10:43 AM) SpO2 99 % (05/09/16 10:43 AM) Problem List Condition Effective Dates Status [...] FOUR TIMES DAILY, # 100 strip, eRx: [facility] [id number], USE TO TEST BLOOD SUGARS FOUR TIMES [...] Daily, # 150 mL, 1 Refill(s), Pharmacy: [facility], 5 mL G-Tube Daily Start Date: 04/21/16 Status: Ordered Flonase 50 mcg/inh nasal spray 1 sprays, Nasal, BID, # 1 Each, 6 Refill(s), Pharmacy: [facility] Start Date: 05/09/16 Stop Date: 12/05/16 Status: Ordered Glucometer (DME) DME Item to check bld sugars fasting and 2hrpp after last meal three days of week. diag - E11.9, See Instructions, # 1 Each, 0 Refill(s), Pharmacy: [facility] [id number], to check bld sugars fasting and 2hrpp after last meal three days of we... Start Date: 07/08/15 Status: Ordered Glucometer Lancets (DME) DME Item AccuCheck Soft Click Lancets. SIG: Use one lancet BID every other day. DX: E11.9, See Instructions, # 1 boxes, 6 Refill(s), Pharmacy: [facility] [id number], AccuCheck Soft Click Lancets. SIG: Use one lancet BID every other day. DX: E... Start Date: 02/16/16 Status: Ordered Glucometer strips (DME) DME Item PT USES ACCUCHECK SHORTY TO CHECK BLOOD SUGAR 4 TIMES DAILY FOR E11.65, See Instructions, # 100 Each, 1 Refill(s), Pharmacy: [facility] [id number] , PT USES ACCUCHECK SHORTY TO CHECK [...] days., # 22 g, 0 Refill(s), Pharmacy: [facility] Start Date: 03/17/16 Status: Ordered potassium chloride [...] recent to 1 oldest [Reference Range]: WBC [4.8-10.8 6.3 10*3/uL 10*3/uL] (05/09/16 11:15 AM) RBC [4.60-6.20] 4.27 *LOW* (05/09/16 11:15 AM) Hgb [14.0-18.0 12.5 gm/dL gm/dL] *LOW* (05/09/16 11:15 AM) Hct [42.0-52.0 %] 38.1 % *LOW* (05/09/16 11:15 AM) MCV [82.0-99.0 fL] 89.2 fL (05/09/16 11:15 AM) MCH [27.0-32.0 pg] 29.3 pg (05/09/16 11:15 AM) MCHC [32.0-36.0 32.8 gm/dL gm/dL] (05/09/16 11:15 AM) RDW [11.5-14.5 %] 14.8 % *HI* (05/09/16 11:15 AM) Platelet [150-400 204 10*3/uL 10*3/uL] (05/09/16 11:15 AM) MPV [8.8-14.8 fL] 11.8 fL (05/09/16 11:15 AM) Immature 0.3 % Granulocytes (05/09/16:15 AM) [0.0-1.0 %] Neutrophils [51-75 68 % %] (05/09/16 11:15 AM) Lymphocytes [20-46 18 % %] *LOW* (05/09/16 11:15 AM) Monocytes [4-11 %] 11 % (05/09/16 11:15 AM) Eosinophils [0-4 %] 2 % (05/09/16 11:15 AM) Basophils [0-2 %] 1 % (05/09/16 11:15 AM) Neutro Absolute 4.25 [1.90-7.00] (05/09/16 11:15 AM) Lymph Absolute 1.11 [0.80-3.30] (05/09/16 11:15 AM) Cavalier Absolute 0.70 [0.30-1.00] (05/09/16 11:15 AM) Eos Absolute 0.15 [0.00-0.50] (05/09/16 11:15 AM) Baso Absolute 0.03 [0.00-0.20] (05/09/16 11:15 AM) Chemistry Most recent to 1 oldest [Reference Range]: Sodium Lvl [135-144 139 mEq/L mEq/L] (05/09/16 11:15 AM) Potassium Lvl 4.7 mEq/L [3.5-5.2 mEq/L] (05/09/16 11:15 AM) Chloride [99-111 101 mEq/L mEq/L] (05/09/16 11:15 AM) CO2 [23-31 mEq/L] 28 mEq/L (05/09/16 11:15 AM) AGAP [3-20] 10 (05/09/16 11:15 AM) BUN [8-26 mg/dL] 28 mg/dL *HI* (05/09/16 11:15 AM) Glucose Lvl [70-99 107 mg/dL mg/dL] *HI* (05/09/16 11:15 AM) Creatinine Lvl 0.84 mg/dL [0.72-1.25 mg/dL] (05/09/16 11:15 AM) eGFR [>60 mL/min] >60 mL/min 1 (05/09/16 11:15 AM) Calcium Lvl 9.2 mg/dL [8.9-10.5 mg/dL] (05/09/16 11:15 AM) Albumin Lvl [3.5-5.0 4.1 gm/dL gm/dL] (05/09/16 11:15 AM) Total Protein 6.7 gm/dL [6.1-7.7 gm/dL] (05/09/16 11:15 AM) Globulin [1.8-4.0 2.6 gm/dL gm/dL] (05/09/16 11:15 AM) ALT [0-55 U/L] 23 U/L (05/09/16 11:15 AM) AST [5-34 U/L] 22 U/L (05/09/16 11:15 AM) Alk Phos [40-150 188 U/L U/L] *HI* (05/09/16 11:15 AM) Bili Total [0.2-1.2 0.3 mg/dL mg/dL] (05/09/16 11:15 AM) Hgb A1c [4.1-5.6 %] 5.3 % (05/09/16 11:15 AM) eAvg Glucose 105.4 mg/dL (05/09/16 11:15 AM) 1Result Comment: Multiply eGFR results by 1.21 for race. Immunizations Given and Recorded Vaccine Date Status Refusal Reason influenza virus vaccine, inactivated 12/04/15 Given Procedures No data available for this section Social History Social History Type Response Smoking Status Never smoker Assessment and Plan Extracted from: Title: Office Visit Note Author: Rob Everett DO Date: 05/09/16 Assessment/Plan 1.Major depression 1. Continue with counseling. 2. Continue with medications as previous. 3. Follow up in 2 months for reevaluation. Ordered: Office Visit Level 4 Est 87034 2.Type 2 diabetes mellitus 1. Continue with dietary modification. 2. A1C is pending. 3. Follow up in two months for reevaluations. Ordered: Office Visit Level 4 Est 30084 3.G tube feedings 1. Continue with current calorie feeding. 2. Recommended increasing volume of water to 350ml Qid. 3. As it becomes warmer and he becomes more active outdoors he will need more water volume. 4. We will reassess in 2 months. Ordered: Office Visit Level 4 Est 29344 Medication management 1. Continue with current medications. 2. Screening labs are pending for renal and liver function. Ordered: Hemoglobin A1c Office Visit Level 4 Est 68551
[2016-08-29] MEDS ORDERED: QUET200T83 PO (13:46)
[2016-08-29] MEDS ORDERED: POTA20LI4 GT (13:48)
[2016-08-29] MEDS ORDERED: QUET400T34 GT (13:48)
--- OUTSIDE RECORDS SUMMARY | 2016-08-29 13:53 | XMS REPORT | Continuity of Care Document ---
Author Author [facility] Organization [facility] Address Unknown Phone Unavailable Care Team Providers Care Grain Trimmer Name Role Phone Primary Care Physician Unavailable Source Comments Some departments are not documenting in the electronic medical record. If you do not see the information that you expected, contact Release of Information in the Health Information Management department at [phone] for further assistance in locating additional records.[facility] Active Allergies and Adverse Reactions Allergen Noted [...]
--- OUTSIDE RECORDS SUMMARY | 2016-08-29 13:54 | XMS REPORT | Continuity of Care Document ---
Author Author [facility] Organization [facility] Address Unknown Phone Unavailable Allergies Active Description Code Type Severity Reaction Onset Reported/Identified Relationship to Patient Clinical Status Yes BACTRIM [id number] Drug Allergy N/A N/A Yes IBUPROFEN 5640 Drug Allergy N/A N/A Yes PSEUDOEPHEDRINE HCL 32824 Drug Allergy N/A N/A Yes No Known [...] Procedures Code Description Performed By Performed On [id number] INSERTION OF FEEDING DEVICE INTO STOMACH, PERC FRANCISCO Westhoff DO, Jolynn C 05/16/2015 [id number] INSPECTION OF UPPER INTESTINAL TRACT, ENDO Westhoff DO, Jolynn C 05/16/2015 [id number] INSPECTION OF LOWER INTESTINAL TRACT, ENDO Westhoff [...] Status Pt. Type Provider Facility Loc./Unit Complaint [id number] 08/08/2015 10:00:00 2015 10:00:00 CAN Preadkrystin Mckinney MD, [facility] W.HBO [id number] 06/04/2015 11:06:00 2015 15:56:00 DIS Outpatient Marlene EDWARD, [facility] W.END [id number] 05/16/2015 13:21:00 2015 15:14:00 DIS [facility]patient [facility] W[facility] [id number] 05/20/2015 13:30:00 2015 13:30:00 CAN Outpatient Marlene EDWARD, Isidro Osorio [facility] MARIE
[2016-08-29] MEDS ORDERED: NUT.237L53 GT (13:55)
--- OUTSIDE RECORDS SUMMARY | 2016-08-29 13:55 | XMS REPORT | Continuity of Care Document ---
Author Author [facility] Organization [facility] Address Unknown Phone Unavailable Allergies Active Description Code Type Severity Reaction Onset Reported/Identified Relationship to Patient Clinical Status Yes BACTRIM [id number] Drug Allergy N/A N/A Yes IBUPROFEN 5640 Drug Allergy N/A N/A Yes [place]UDOEPHEDRINE HCL 79519 Drug Allergy N/A N/A Yes No Known [...] Procedures Code Description Performed By Performed On [id number] INSERTION OF FEEDING DEVICE INTO STOMACH, PERC FRANCISCO Westhoff DO, Jolynn C 05/16/2015 [id number] INSPECTION OF UPPER INTESTINAL TRACT, ENDO Westhoff DO, Jolynn C 05/16/2015 [id number] INSPECTION OF LOWER INTESTINAL TRACT, ENDO Westhoff [...] Status Pt. Type Provider Facility Loc./Unit Complaint [id number] 08/08/2015 10:00:00 2015 10:00:00 CAN Preadkrystin Mckinney MD, [facility] W.HBO [id number] 06/04/2015 11:06:00 2015 15:56:00 DIS Outpatient Marlene EDWARD, [facility] W.END [id number] 05/16/2015 13:21:00 2015 15:14:00 DIS [facility] W[facility] [id number] 05/20/2015 13:30:00 2015 13:30:00 CAN Outpatient Marlene EDWARD, Isidro Osorio [facility] MARIE
--- NOTE | 2016-08-29 13:59 | ERPDOC ---
Departure Disposition Decision Date: August 29, 2016 Disposition Decision Time: 14:57 Disposition: 04 TO [facility] HOME/FACILITY Impression Impression Impression: Primary Impression: Aspiration pneumonia Severity: Moderate Condition: Stable Seen By: Physician only Referrals: RUSTY LEIJA DO (Family) Patient Instructions: Aspiration Pneumonia (DC) Problems/Meds/Labs Reviewed?: Yes Medications reviewed and manag: Yes Additional Instructions: You were given Rocephin 1 g IM in the emergency department. Please take Zithromax 500 mg tablet daily for 3 days. Follow up care ordered?: Yes Mental Status: Alert Scripts Azithromycin (Zithromax Tri-Christian) 500 Mg Tablet 1 TAB PO DAILY for 3 Days, TAB Prov: SOFIA HARGROVE MD 08/29/16 HPI - Cough/URI General Chief Complaint: General Stated Complaint: COUGHING BLOOD Time Seen by Provider: 13:48 HPI - Cough/URI Initial Comments 51-year-old gentleman resides at residential community. He has coughed up some mucus recently and there were a few blood-tinged areas. They thought ahead and brought some in so they could show us what it looked like. He's had no fever or chills. His swallowing is severely restricted and he is fed through a G-tube. He is however able to cough up and bringing up mucus. Allergies: Coded Allergies: ibuprofen (Verified Allergy, Unknown, 03/31/16) pseudoephedrine (Verified Allergy, Unknown, 03/31/16) sulfamethoxazole (Verified Allergy, Unknown, 03/31/16) trimethoprim (Verified Allergy, Unknown, 03/31/16) Past History Patient Surgical History Diagnostic fiberoptic laryngoscopy 12/24, Dr. Blair - larynx is clear, normal vocal cord movement, no aspiration G-tube placement 05/26 Appendectomy Myringotomy tubes Past Medical History Metabolic: diabetes, hypertension Respiratory: pneumonia GI: other Neurological: chronic disability Hematologic: anemia Psychological: bipolar, depression, schizophrenia, suicide attempt Surgical History General: appendix, other Family History Family PMH: FOUND: other Vaccines Hx Influenza Vaccination: Yes Hx Pneumococcal Vaccination: No Social History Smoking Status: Never smoker Does patient use chewing tobac: No Second Hand Exposure: No Substance Use Type: does not use Alcohol Intake: none, other Housing: apartment Advance Directives: Yes Full Code Record Review Pertinent history updated: Yes Review of Systems Pulmonary Respiratory: see HPI GI Upper Abdomen: see HPI Psychiatric Psychiatric: see HPI All other Systems All Other Systems: Reviewed and Negative Physical Exam General General Nourishment: appears stated age, no acute distress, thin General Body Habitus: well groomed Vitals and Pain Weight: Kilograms: Height (feet): 6 Height (inches): 1.00 Triage Pain Scale: Normal Exams: Head: Normocephalic w/o trauma CV: Regular rate and rhythm, without murmur or gallop, Pulses 2+ all extremities, capillary refill, <2 seconds all ext., no pedal edema noted Abdomen: Bowel sounds positive, soft, non-tender, non-distended, no hepatosplenomegaly, masses or bruits noted Respiratory (brief) Comments Very mild crackles heard bilateral bases. Differential Diagnoses Differential Diagnoses Considering: Acute Bronchitis, Asthma Exacerbation, COPD Exacerbation, Pharyngitis, Pneumonia, URI, Viral Syndrome Progress Results/Orders Orders Procedure Category Date Status Time Chest, Pa & Lateral RAD 08/29/16 Resulted Progress Progress Patient has very mild respiratory symptoms, but a strong history of previous aspiration pneumonia. He is strict nothing by mouth due to dysphagia, however he apparently steals food and drink from other residents and frequently develops aspiration pneumonia. His DPOA is very concerned that "every time in the past" that he has had these symptoms, it is been pneumonia. I did agree to go and treat with a gram of Rocephin IM and Zithromax 500 mg daily for 3 days. He'll be discharged back. SOFIA HARGROVE MD August 29, 2016 13:59
--- NOTE | 2016-08-29 14:00 | NUR ---
SISTER CALLED & CONCERNED ABOUT PT BEING BROUGHT TO ER BY CAREGIVER WITHOUT FORMAL DOCUMENTATION OF PERMISSION. SHE EXPLAINED PT'S ASPIRATION HX
--- NOTE | 2016-08-29 14:15 | NUR ---
ROOM CHANGE PT ROLLED ON CART OUT TO ANDRADE BED 8.
--- NOTE | 2016-08-29 14:29 | NUR ---
TO [facility] PER CART
--- NOTE | 2016-08-29 14:35 | NUR ---
RETURNED FROM [facility]
--- NOTE | 2016-08-29 14:47 | DI ---
Indication: ITS.REASON: blood-tinged mucus CHEST, PA LATERAL: Comparison: 03/23/2016 Technique: PA and lateral chest Findings: Patient shows normal heart, mediastinum and central vascularity. Lungs showed slightly less prominent basilar markings in on the previous examination. Patient did show slightly more prominent mild rotoscoliotic deformity in the thoracic spine on today's exam. Impression: Mild rotoscoliosis with no acute cardiopulmonary findings. .
[2016-08-29] MEDS ORDERED: AZIT500T2 PO (14:59)
[2016-08-29] MEDS ORDERED: CEFTRIAXONE I.V. (ER USE ONLY) 1 G in NORMAL SALINE 100 ML IV ONE (15:15)
[2016-08-29] MEDS ORDERED: CEFTRIAXONE 1 GRAM INJECTION IM ONE (15:30)
[2016-08-29 16:01] VITALS: BP 107/60; PULSE 61; RESP 18; O2SAT 97
== END 2016-08-29 16:01 ==
LOC: ED 13:36
DX: J69.0 Pneumonitis due to inhalation of food and vomit (principal)
CPT/HCPCS: 71020; 96372; 99284; J0696